=== PATIENT | female | born 1935 | race Caucasian/White ===

== ENCOUNTER → 2016-04-28 | Outpatient (CLI) | payer MEDICARE ==
[~2016-04-28] MED LIST: ALLO100T PO; ALLP300T PO; AML5T; AMLO10TA PO; AMLO5TAB2 PO; ASP81TEC PO; ASPI-587 PO; ATN50T; ATRV10T PO; BISO1TAB41; CALC667T4 PO; CARV25TA PO; CARV6.252 PO; CHOL100011 PO; CHOL10002 PO; CIPR-120 PO; CRV25T PO; DILT120C PO; DILT120C8; DILT180C94 PO; FA/V1TAB2 PO; FEBU40TA PO; FLUT12AE4 IH; FOSI40TA2 PO; FRS325T PO; FRSM20T; FURO20TA4 PO; HYDR-3004 PO; HYDR473S34 PO; INDM25C PO; KCL20TCR PO; LACT1CAP62 PO; LSNP20T; METR500T PO; MTF500T; MTF500T PO; NABU750T PO; NFR150C PO; OMEP20TA7 PO; POTA10CA43 PO; SIMV10TA3 PO; SULF1TAB35 PO; SULF1TAB38 PO; Sensipar PO; TORS20TA2; TRAM50TA2 PO; TRS20T PO; VENL150C PO; VENL150C53 PO; VNL75CCR; VNL75T PO; ZLP10T PO; [UNRECOGNIZED DRUG - OTHER]
--- NOTE | 2016-04-28 12:24 | Diagnostic Imaging Report ---
PROCEDURE: CT chest without contrast. TECHNIQUE: Multiple contiguous axial images were obtained through the chest without the use of intravenous contrast. INDICATION: Followup pulmonary nodules. COMPARISON: CT chest of 10/02/2015. FINDINGS: Lungs and airway: Bilateral multifocal pulmonary nodules range in size from 2-6 mm are unchanged in number and distribution. More rounded focus of nodular consolidation measuring approximately 14 mm along the posterior aspect of the left major fissure is also unchanged. No new pulmonary mass, suspicious nodule or consolidation. Pleura: No pleural effusion or pneumothorax. Heart and mediastinum: Stable exophytic nodule extending along the posterior aspect of the right thyroid lobe measuring 1.8 x 1.3 cm. No supraclavicular or axillary lymphadenopathy. No discrete intrathoracic lymphadenopathy. Stable cardiomegaly without pericardial effusion. 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 Normal-caliber abdominal aorta. No hiatus hernia. Upper abdomen: Stable small cystic lesion in the upper pole of the left kidney. Cholecystectomy. Atherosclerosis of the aorta. Musculoskeletal: No concerning osseous lesions in the thorax. IMPRESSION: 1. Multifocal bilateral small pulmonary nodules ranging in size from 2-6 mm are stable. These are likely due to the sequelae of infectious/inflammatory process (such as noncalcified granulomatous infection). Consider followup CT chest in 12 months to ensure stability. Imaging can perform sooner if deemed clinically warranted. 2. The solid nodular focus of consolidation in the left lower lobe along the posterior aspect of the major fissure is also unchanged. Dictated by: Dictated on workstation # [id number]
== END ==
LOC: RAD 09:49
PROVIDERS: ATTEND Internal Medicine
DX: R91.8 Other nonspecific abnormal finding of lung field (principal)
CPT/HCPCS: 71250

== ENCOUNTER 2016-07-16 13:01 | Outpatient (RCR) | payer MEDICARE | END 2016-07-16 13:30 | disposition home or self-care (01) | PROVIDERS: ATTEND Orthopaedic Surgery | DX: M75.101 Unspecified rotator cuff tear or rupture of right shoulder, not specified as traumatic (principal) ==

== ENCOUNTER 2016-12-27 13:49 | Outpatient (RCR) | payer MEDICARE | END 2017-03-27 | disposition home or self-care (01) | LOC: LAB 13:49 | PROVIDERS: ATTEND Internal Medicine | DX: R19.7 Diarrhea, unspecified (principal) | CPT/HCPCS: 87045; 87046; 87177; 87324; 87449; 87493 ==

== ENCOUNTER → 2017-02-18 | Outpatient (CLI) | payer MEDICARE | LOC: LAB 16:27 | PROVIDERS: ATTEND Internal Medicine | DX: R19.7 Diarrhea, unspecified (principal) ==

== ENCOUNTER 2017-05-21 08:57 | Outpatient (RCR) | payer MEDICARE | END 2017-08-16 | disposition home or self-care (01) | LOC: LAB 08:57 → EDSTATUS 05-23 12:05 | PROVIDERS: ATTEND Internal Medicine Gastroenterology | DX: R19.7 Diarrhea, unspecified (principal) | CPT/HCPCS: 87324; 87449; 87493 ==

== ENCOUNTER → 2017-06-30 | Outpatient (CLI) | payer MEDICARE ==
--- NOTE | 2017-06-30 17:19 | Diagnostic Imaging Report ---
INDICATION: Fall with right rib pain. AP and oblique views of the right ribs are obtained. There is no underlying pneumothorax or pleural fluid. No fracture or acute bony abnormality is seen. There is no overt lytic or blastic lesion. IMPRESSION: Negative right ribs. Dictated by: Dictated on workstation # [id number]
--- NOTE | 2017-06-30 18:47 | Diagnostic Imaging Report ---
INDICATION: Trauma. Study interpreted in correlation with previous chest x-rays. FINDINGS: Sternal wires are midline and intact. Thoracic vertebral body heights are maintained. Degenerative disc space narrowing with anteriorly oriented endplate osteophytes showed no obvious change from priors. No acute endplate irregularity, fracture, or listhesis. IMPRESSION: Degenerative changes. Aligned anatomically. No acute thoracic spinal abnormality is radiographically apparent. Dictated by: Dictated on workstation # [id number]
== END ==
LOC: RAD 15:43
PROVIDERS: ATTEND Internal Medicine
DX: R07.81 Pleurodynia (principal); M47.814 Spondylosis without myelopathy or radiculopathy, thoracic region; W19.XXXA Unspecified fall, initial encounter
CPT/HCPCS: 71100; 72072

== ENCOUNTER 2017-08-02 14:59 | Emergency (ER) | payer MEDICARE ==
[~2017-08-02] VITALS: Ht 165.1 cm; Wt 81.6 kg
--- OUTSIDE RECORDS SUMMARY | 2017-08-02 15:07 | XMS REPORT | Referral Summary ---
Author Author [facility] Organization [facility] Address Unknown Phone Unavailable Care Team Providers Care Hospital Laboratory Technician Name Role Phone Aaron Martel PCP PROVIDER, MAKAYLA PCP Unavailable Encounter VC Date(s): 06/03/17 - 06/07/17 [facility] [address] [place] [address] [phone] Discharge Disposition: 01-Home or Self Care Attending Physician: Tawny Varela MD Admitting Physician: Toño Marie MD Vital Signs Most recent to 1 oldest [Reference Range]: Temperature Oral 36.7 degC [35.8-37.3 degC] (06/07/17 12:00 PM) Temperature Temporal 36.0 degC Artery [36.3-37.8 *LOW* degC] (06/06/17 6:12 PM) Peripheral Pulse 74 bpm Rate [60-100 bpm] (06/07/17 12:00 PM) Heart Rate Monitored 65 bpm [60-100 bpm] (06/06/17 9:55 PM) Respiratory Rate 18 br/min [14-20 br/min] (06/07/17 12:00 PM) Blood Pressure 150/71 mmHg [90-140/60-90 mmHg] *HI* (06/07/17 12:00 PM) Mean Arterial 104 mmHg Pressure, Cuff (06/06/17 6:45 PM) SpO2 90 % (06/07/17 12:00 PM) Remote Telemetry Initiated (06/06/17 9:55 PM) Problem List Condition Effective Dates Status Health Status Informant Bowel Active dysfunction(Confirme d)1 Diabetes(Confirmed) Active patient Dialysis Active patient patient(Confirmed) Fluid Active imbalance(Confirmed) 2 HTN Active patient (hypertension)(Confi rmed) 1Problem added automatically by system based on initiation of Bowel Dysfunction Plan of Care 2Problem added automatically by system based on initiation of Fluid Volume Imbalance Plan of Care Allergies, Adverse Reactions, Alerts No Known Allergies Medications allopurinol 100 mg oral tablet 100 mg 1 tabs, Oral, Daily, # 30 tabs, 0 Refill(s) Start Date: 06/03/17 Status: Ordered amLODIPine 10 mg oral tablet 10 mg 1 tabs, Oral, Daily, 0 Refill(s) Start Date: 06/03/17 Status: Ordered aspirin 81 mg oral delayed release tablet 81 mg 1 tabs, Oral, Daily, # 30 tabs, 0 Refill(s) Start Date: 06/07/17 Status: Ordered calcium acetate 667 mg oral capsule 1,334 mg 2 caps, Oral, TIDPC, # 90 caps, 0 Refill(s) Start Date: 06/03/17 Status: Ordered carvedilol 25 mg oral tablet 12.5 mg 0.5 tabs, Oral, BID, 0 Refill(s) Start Date: 06/03/17 Status: Ordered Dialyvite 800 1 tabs, Oral, Daily, 0 Refill(s) Start Date: 06/03/17 Status: Ordered furosemide 40 mg, Oral, Daily, 0 Refill(s) Start Date: 06/03/17 Status: Ordered Lipitor 10 mg oral tablet 10 mg 1 tabs, Oral, Daily, # 30 tabs, 0 Refill(s) Start Date: 06/07/17 Status: Ordered losartan 100 mg oral tablet 100 mg 1 tabs, Oral, Daily, # 30 tabs, 0 Refill(s) Start Date: 06/03/17 Status: Ordered omeprazole 40 mg oral delayed release capsule 40 mg 1 caps, Oral, Daily, 0 Refill(s) Start Date: 06/03/17 Status: Ordered rOPINIRole 0.5 mg oral tablet 0.5 mg 1 tabs, Oral, Bedtime (once a day), 0 Refill(s) Start Date: 06/03/17 Status: Ordered venlafaxine 150 mg oral capsule, extended release 150 mg 1 caps, Oral, Daily, 0 Refill(s) Start Date: 06/03/17 Status: Ordered Results Hematology Most recent to 1 oldest [Reference Range]: WBC [4.8-10.8 7.1 10*3/uL 10*3/uL] (06/07/17 4:58 AM) RBC [4.00-5.20] 2.57 *LOW* (06/07/17 4:58 AM) Hgb [12.0-16.0 8.5 gm/dL gm/dL] *LOW* (06/07/17 4:58 AM) Hct [37.0-47.0 %] 26.0 % *LOW* (06/07/17 4:58 AM) MCV [82.0-99.0 fL] 101.2 fL *HI* (06/07/17 4:58 AM) MCH [27.0-32.0 pg] 33.1 pg *HI* (06/07/17 4:58 AM) MCHC [32.0-36.0 32.7 gm/dL gm/dL] (06/07/17 4:58 AM) RDW [11.5-14.5 %] 13.1 % (06/07/17 4:58 AM) Platelet [150-400 210 10*3/uL 10*3/uL] (06/07/17 4:58 AM) MPV [9.4-12.4 fL] 10.6 fL (06/07/17 4:58 AM) Immature 0.5 % Granulocytes (06/05/17 6:53 AM) [0.0-1.0 %] Neutrophils [51-75 69 % %] (06/05/17 6:53 AM) Lymphocytes [20-46 20 % %] (06/05/17 6:53 AM) Monocytes [4-11 %] 7 % (06/05/17 6:53 AM) Eosinophils [0-4 %] 3 % (06/05/17 6:53 AM) Basophils [0-2 %] 0 % (06/05/17 6:53 AM) Neutro Absolute 3.82 [1.90-7.00] (06/05/17 6:53 AM) Lymph Absolute 1.10 [0.80-3.30] (06/05/17 6:53 AM) [place] Absolute 0.40 [0.30-1.00] (06/05/17 6:53 AM) Eos Absolute 0.17 [0.00-0.50] (06/05/17 6:53 AM) Baso Absolute 0.01 [0.00-0.20] (06/05/17 6:53 AM) Nucleated RBC 0.0 /100 WBC Automated [0 /100 (06/05/17 6:53 AM) WBC] Chemistry Most recent to 1 oldest [Reference Range]: Sodium Lvl [136-144 137 mEq/L mEq/L] (06/07/17 4:58 AM) Potassium Lvl 3.6 mEq/L [3.6-5.1 mEq/L] (06/07/17 4:58 AM) Chloride [99-109 97 mEq/L mEq/L] *LOW* (06/07/17 4:58 AM) CO2 [22-32 mEq/L] 28 mEq/L (06/07/17 4:58 AM) AGAP [3-20 mEq/L] 12 mEq/L (06/07/17 4:58 AM) BUN [4-20 mg/dL] 51 mg/dL *HI* (06/07/17 4:58 AM) Glucose Lvl [70-100 100 mg/dL mg/dL] (06/07/17 4:58 AM) Creatinine Lvl 7.91 mg/dL [0.44-1.03 mg/dL] *HI* (06/07/17 4:58 AM) eGFR [>60 mL/min] 5 mL/min 1 *ABN* (06/07/17 4:58 AM) Calcium Lvl 9.1 mg/dL [8.6-10.0 mg/dL] (06/07/17 4:58 AM) Albumin Lvl [3.5-4.8 2.7 gm/dL gm/dL] *LOW* (06/06/17 5:57 AM) Total Protein 5.4 gm/dL [6.1-7.9 gm/dL] *LOW* (06/06/17 5:57 AM) Globulin [1.9-4.3 2.7 gm/dL gm/dL] (06/06/17 5:57 AM) ALT [14-54 U/L] 265 U/L *HI* (06/06/17 5:57 AM) AST [15-41 U/L] 54 U/L *HI* (06/06/17 5:57 AM) Alk Phos [26-104 185 U/L U/L] *HI* (06/06/17 5:57 AM) Bili Total [0.2-1.2 0.3 mg/dL 2 mg/dL] (06/06/17 5:57 AM) Iron [50-170 mcg/dL] 105 mcg/dL (06/05/17 10:23 AM) TIBC [286-569 305 mcg/dL mcg/dL] (06/05/17 10:23 AM) Iron Sat [11-46 %] 34 % (06/05/17 10:23 AM) Transferrin [192-382 205 mg/dL mg/dL] (06/05/17 10:23 AM) Ferritin Lvl [11-307 3647 ng/mL ng/mL] *HI* (06/05/17 10:23 AM) Magnesium Lvl 1.9 mg/dL [1.8-2.5 mg/dL] (06/07/17 4:58 AM) Phosphorus [2.4-4.7 6.5 mg/dL 3 mg/dL] *HI* (06/07/17 4:58 AM) Troponin [<0.06 0.06 ng/mL 4 ng/mL] *CRIT* (06/04/17 4:15 AM) Blood Glucose, 123 mg/dL Capillary [70-100 *HI* mg/dL] (06/03/17 8:33 PM) Chol [0-199 mg/dL] 153 mg/dL (06/03/17 4:54 PM) Trig [0-149 mg/dL] 182 mg/dL *HI* (06/03/17 4:54 PM) HDL [40-84 mg/dL] 50 mg/dL (06/03/17 4:54 PM) LDL [0-130 mg/dL] 67 mg/dL (06/03/17 4:54 PM) VLDL Cholesterol 36 mg/dL [0-28 mg/dL] *HI* (06/03/17 4:54 PM) Cardiac Risk 3.1 [0.0-5.0] (06/03/17 4:54 PM) Hep A IgM Negative (06/05/17 10:23 AM) Hep Bs Ag Negative (06/05/17 10:23 AM) Hep C Ab Negative (06/05/17 10:23 AM) Hep B Core IgM Negative (06/05/17 10:23 AM) Hgb A1c [4.1-5.6 %] 5.5 % (06/05/17 6:53 AM) eAvg Glucose 111.2 mg/dL (06/05/17 6:53 AM) 1Result Comment: Multiply eGFR results by 1.21 for race. 2Result Comment: Naproxen, specifically the metabolite O-desmethylnaproxen, may cause spurious elevation in Total Bilirubin levels. 3Result Comment: High dosages of liposomal Amphotericin B (AmBisome) therapy or other drug preparations that use a liposomal envelope to facilitate drug delivery may cause falsely elevated results for phosphorus. 4Result Comment: Critical value called, and read-back verified. Called to Elizabeth Lao RN ([id number]) 06/04/2017 05:10 Immunizations No data available for this section Procedures Procedure Date Related Diagnosis Body Site Status Colonoscopy Polypectomy1 06/06/17 Completed Esophagogastroduodenoscopy Biopsy2 06/06/17 Completed Procedure with Anesthesia3 06/06/17 Completed 1auto-populated from documented surgical case 2auto-populated from documented surgical case 3auto-populated from documented surgical case Social History Social History Type Response Smoking Status Never (less than 100 in lifetime) entered on: 06/03/17 Assessment and Plan No data available for this section
[2017-08-02] MEDS ORDERED: TETANUS,DIPTH,PERTUSS P/F (BOOSTRIX) 0.5 ML VIAL IM ONE (15:15)
--- NOTE | 2017-08-02 15:48 | Diagnostic Imaging Report ---
INDICATION: Chest injury from a fall. Portable chest at 4:01 PM FINDINGS: There are postop changes from CABG surgery. Heart size and pulmonary vascularity are normal. Lungs are clear. There are no effusions or pneumothoraces. IMPRESSION: No acute abnormalities in the chest. Dictated by: Dictated on workstation # [id number]
--- NOTE | 2017-08-02 15:49 | Diagnostic Imaging Report ---
PROCEDURE: CT head and CT cervical spine without contrast. TECHNIQUE: Multiple contiguous axial images were obtained through the brain and cervical spine without the use of intravenous contrast. Sagittal and coronal reformations through the cervical spine were then performed. INDICATION: Head trauma, forehead hematoma/laceration. CT HEAD: There is large right frontal scalp hematoma that measures 6 cm in diameter and 15 mm in thickness. The ventricles are normal in size, shape and position. There are no masses or hemorrhages. There are no extra-axial fluid collections. There is a lacunar infarct in left basal ganglia of indeterminate age. This measures 11 mm in diameter. IMPRESSION: Nonhemorrhagic lacunar infarct, left basal ganglia of indeterminate age. Large right frontal scalp hematoma. There are no skull fractures seen. CT CERVICAL SPINE: The odontoid is intact. Atlantoaxial relationship is normal. Vertebral body height and alignment appear normal. There is narrowing of the C1-2 joint space. There is disc space narrowing at C5-6. The posterior elements are intact. There are degenerative changes of the facets from C2-C5 bilaterally. IMPRESSION: Degenerative facet changes and degenerative disc changes at C5-6. No acute abnormalities are seen. Dictated by: Dictated on workstation # [id number]
--- NOTE | 2017-08-02 15:50 | Diagnostic Imaging Report ---
Indication: Injury from a fall. FINDINGS: AP view pelvis shows no fracture or dislocation. IMPRESSION: Negative pelvis. Dictated by: Dictated on workstation # [id number]
[2017-08-02 16:00] LABS: BASOPHILS % (AUTO) 0 % (0-10); EOSINOPHILS # (AUTO) 0.2 10^3/uL (0.0-0.3); EOSINOPHILS % (AUTO) 2 % (0-10); HEMATOCRIT 31 % (35-52); LYMPHOCYTES # (AUTO) 0.8 X 10^3 (1.0-4.0); LYMPHOCYTES % (AUTO) 11 % (12-44); MEAN CORPUSCULAR HEMOGLOBIN 32 PG (25-34); MEAN CORPUSCULAR HGB CONC 32 G/DL (32-36); MEAN CORPUSCULAR VOLUME 100 FL (80-99); MEAN PLATELET VOLUME 10.3 FL (7.4-10.4); MONOCYTES # (AUTO) 0.6 X 10^3 (0.0-1.0); MONOCYTES % (AUTO) 8 % (0-12); NEUTROPHILS # (AUTO) 5.8 X 10^3 (1.8-7.8); NEUTROPHILS % (AUTO) 78 % (42-75); PLATELET COUNT 217 10^3/uL (130-400); RED BLOOD COUNT 3.12 10^6/uL (4.35-5.85); RED CELL DISTRIBUTION WIDTH 12.7 % (10.0-14.5); WHITE BLOOD COUNT 7.5 10^3/uL (4.3-11.0)
[2017-08-02 16:18] LABS: ALBUMIN 3.3 GM/DL (3.2-4.5); BILIRUBIN,TOTAL 0.5 MG/DL (0.1-1.0); CALCIUM 9.6 MG/DL (8.5-10.1); CREATININE SERUM 8.82 MG/DL (0.60-1.30); MAGNESIUM 2.3 MG/DL (1.8-2.4); POTASSIUM 4.4 MMOL/L (3.6-5.0); TOTAL PROTEIN 6.4 GM/DL (6.4-8.2)
[2017-08-02 17:15] LABS: BILIRUBIN,URINE NEGATIVE (NEGATIVE); CLARITY,URINE CLEAR; COLOR,URINE YELLOW; GLUCOSE, URINE (UA) 1+ (NEGATIVE); KETONES,URINE NEGATIVE (NEGATIVE); LEUKOCYTE ESTERASE ,URINE NEGATIVE (NEGATIVE); NITRITE,URINE NEGATIVE (NEGATIVE); PH,URINE 8 (5-9); PROTEIN,URINE 3+ (NEGATIVE); UROBILINOGEN,URINE NORMAL (NORMAL)
[2017-08-02 17:22] LABS: BACTERIA,URINE FEW /HPF; RBC,URINE RARE /HPF; WBC,URINE RARE /HPF
--- NOTE | 2017-08-02 17:39 | ED Fall/Injury ---
General Chief Complaint: Trauma-Non Activation Stated Complaint: FALL Nursing Triage Note: TO ROOM PER EMS LOST BALANCE AND FELL. HAS OLD SKIN TEAR ON R FA THAT BROKE BACK OPEN AMD HEAMTOMA ON FOREHEAD WITH SUPERFICAL LACERATION NO LOC. Source: patient Exam Limitations: no limitations History of Present Illness Date Seen by Provider: Aug 02, 2017 Time Seen by Provider: 15:00 Initial Comments This 81-year-old woman presents to the emergency room via EMS after having a fall. She lost her Sergio 7 fell forward striking her head. She reports having a few other falls recently as well. She does peritoneal dialysis at home. She has a hematoma on the right forehead and a skin tear on the right forearm. She denies loss of consciousness. She denies present symptoms of concussion. She denies any other significant injury. Allergies and Home Medications Allergies Coded Allergies: No Known Drug Allergies (Verified , 03/08/15) Home Medications Allopurinol 100 Mg Tab, 100 MG PO DAILY, (Reported) Carvedilol 25 Mg Tablet, 12.5 MG PO BID, (Reported) take 1/2 of 25mg tab Fa/Vit Bcomp&C/Zinc/Vitamin D3 1 Each Tablet, 1 TAB PO DAILY, (Reported) Furosemide 20 Mg Tablet, 20 MG PO DAILY, (Reported) Omeprazole 20 Mg Tablet.dr, 20 MG PO DAILY, (Reported) Potassium Chloride 20 Meq Tabsr, 20 MEQ PO DAILY, (Reported) Venlafaxine Hcl 150 Mg Cap.sr.24h, 150 MG PO DAILY, (Reported) Patient Home Medication List Home Medication List Reviewed: Yes Review of Systems Constitutional: see HPI, weakness Eyes: No Symptoms Reported Ears, Nose, Mouth, Throat: no symptoms reported Respiratory: no symptoms reported Cardiovascular: no symptoms reported Gastrointestinal: no symptoms reported Genitourinary: no symptoms reported Musculoskeletal: see HPI Skin: see HPI Psychiatric/Neurological: No Symptoms Reported Past Zpmgooe-Lvmveu-Dxsund Hx Past Med/Social Hx: Reviewed and Corrections made Patient Social History Alcohol Use: Denies Use Recreational Drug Use: No Smoking Status: Never a Smoker Recent Foreign Travel: No Contact w/Someone Who Travel: No Recent Infectious Disease Expo: No Recent Hopitalizations: Yes Immunizations Up To Date Tetanus Booster (TDap): Unknown Date of Pneumonia Vaccine: Dec 16, 2014 Date of Influenza Vaccine: Jan 01, 2015 Seasonal Allergies Seasonal Allergies: No Past Medical History Surgeries: Yes (APPENDECTOMY, GALL BLADDER, HYSTERECTOMY, HERNIA REMOVAL) Appendectomy, CABG, Gallbladder, Hysterectomy Respiratory: Yes Pneumonia, Sleep Apnea Currently Using CPAP: Yes Cardiac: Yes (CABG IN 2007) Coronary Artery Disease Neurological: No Reproductive Disorders: No Female Reproductive Disorders: Denies Sexually Transmitted Disease: No HIV/AIDS: No Genitourinary: Yes Renal Failure, Dialysis Gastrointestinal: Yes Gastroesophageal Reflux, Diverticulosis, Ulcer, Gall Bladder Disease Musculoskeletal: Yes Arthritis Endocrine: Yes Diabetes, Non-Insulin dep HEENT: Yes Cataract Loss of Vision: Denies Hearing Impairment: Hard of Hearing Cancer: No Psychosocial: Yes Anxiety, Depression Integumentary: No Blood Disorders: Yes (ANEMIA--PROCRIT SHOTS EVERY 2 WEEKS, NONE X 6 WEEKS DUE TO ADEQUATE LEVELS) Adverse Reaction/Blood Tranf: Yes Family Medical History Reviewed Nursing Family Hx Cancer of colon 09 BROTHER Congestive heart failure 03 FATHER ( OF CHF) Family history: Diabetes mellitus 03 MOTHER (HAD DM AND WENT INTO A COMA) Physical Exam Vital Signs Vital Signs - First Documented 08/02/17 14:59 Temp 98.0 Pulse 76 Resp 18 B/P (MAP) 23/99 (74) Pulse Ox 96 O2 Delivery Room Air Capillary Refill : Less Than 3 Seconds General Appearance: WD/WN, no apparent distress HEENT: PERRL/EOMI, TMs normal, pharynx normal, other (Large hematoma on the right forehead with surrounding abrasions.) Neck: non-tender, full range of motion, normal inspection Cardiovascular: regular rate, rhythm, no edema, no murmur Respiratory: lungs clear, normal breath sounds, no respiratory distress, no accessory muscle use Gastrointestinal: normal bowel sounds, non tender, soft Extremities: other (Skin tear on the right forearm but otherwise unremarkable) Neurologic/Psychiatric: home organizer II-XII nml as tested, alert, normal mood/affect, oriented x 3, motor weakness (Generalized with no focal deficit) Skin: normal color, warm/dry, other (Skin tears of the right forearm. Hematoma , ecchymosis, no abrasions of the right forehead) [place] Coma Score Best Eye Response: (4) Open Spontaneously Best Verbal Response: (5) Oriented Best Motor Response: (6) Obeys Commands [place] Total: 15 Progress/Results/Core Measures Results/Orders Lab Results Laboratory Tests Test 08/02/17 15:49 08/02/17 17:06 Range/Units White Blood Count 7.5 4.3-11.0 10^3/uL Red Blood Count 3.12 L 4.35-5.85 10^6/uL Hemoglobin 10.0 L 11.5-16.0 G/DL Hematocrit 31 L 35-52 % Mean Corpuscular Volume 100 H 80-99 FL Mean Corpuscular Hemoglobin 32 25-34 PG Mean Corpuscular Hemoglobin Concent 32 32-36 G/DL Red Cell Distribution Width 12.7 10.0-14.5 % Platelet Count 217 130-400 10^3/uL Mean Platelet Volume 10.3 7.4-10.4 FL Neutrophils (%) (Auto) 78 H 42-75 % Lymphocytes (%) (Auto) 11 L 12-44 % Monocytes (%) (Auto) 8 0-12 % Eosinophils (%) (Auto) 2 0-10 % Basophils (%) (Auto) 0 0-10 % Neutrophils # (Auto) 5.8 1.8-7.8 X 10^3 Lymphocytes # (Auto) 0.8 L 1.0-4.0 X 10^3 Monocytes # (Auto) 0.6 0.0-1.0 X 10^3 Eosinophils # (Auto) 0.2 0.0-0.3 10^3/uL Basophils # (Auto) 0.0 0.0-0.1 10^3/uL Sodium Level 139 135-145 MMOL/L Potassium Level 4.4 3.6-5.0 MMOL/L Chloride Level 99 98-107 MMOL/L Carbon Dioxide Level 24 21-32 MMOL/L Anion Gap 16 H 5-14 MMOL/L Blood Urea Nitrogen 42 H 7-18 MG/DL Creatinine 8.82 H 0.60-1.30 MG/DL Estimat Glomerular Filtration Rate 4 BUN/Creatinine Ratio 5 Glucose Level 111 H 70-105 MG/DL Calcium Level 9.6 8.5-10.1 MG/DL Magnesium Level 2.3 1.8-2.4 MG/DL Total Bilirubin 0.5 0.1-1.0 MG/DL Aspartate Amino Transf (AST/SGOT) 23 5-34 U/L Alanine Aminotransferase (ALT/SGPT) 21 0-55 U/L Alkaline Phosphatase 82 40-136 U/L Total Protein 6.4 6.4-8.2 GM/DL Albumin 3.3 3.2-4.5 GM/DL Urine Color YELLOW Urine Clarity CLEAR Urine pH 8 5-9 Urine Specific [place] 1.010 L 1.016-1.022 Urine Protein 3+ H NEGATIVE Urine Glucose (UA) 1+ H NEGATIVE Urine Ketones NEGATIVE NEGATIVE Urine Nitrite NEGATIVE NEGATIVE Urine Bilirubin NEGATIVE NEGATIVE Urine Urobilinogen NORMAL NORMAL MG/DL Urine Leukocyte Esterase NEGATIVE NEGATIVE Urine RBC (Auto) 2+ H NEGATIVE Urine RBC RARE /HPF Urine WBC RARE /HPF Urine Squamous Epithelial Cells 10-25 H /HPF Urine Crystals NONE /LPF Urine Bacteria FEW H /HPF Urine Casts NONE /LPF Urine Mucus NEGATIVE /LPF Urine Culture Indicated NO My Orders Orders - ERNESTO DURON MD Cbc With Automated Diff (08/02/17 15:11) Comprehensive Metabolic Panel (08/02/17 15:11) Magnesium (08/02/17 15:11) Ua Culture If Indicated (08/02/17 15:11) Ct Head/Cervical Spine Wo (08/02/17 15:11) Saline Lock/Iv-Start (08/02/17 15:11) Dipht,Pertuss(Acell),Tet Adult (Boostrix (08/02/17 15:15) Pelvis (08/02/17 15:11) Chest 1 View, Ap/Pa Only (08/02/17 15:11) Vaccine Administration Single (08/02/17 ) Medications Given in ED Vital Signs/I&O 08/02/17 08/02/17 14:59 18:00 Temp 98.0 Pulse 76 76 Resp 18 18 B/P (MAP) 23/99 (74) 158/90 Pulse Ox 96 97 O2 Delivery Room Air Room Air Blood Pressure Mean: 74 Progress Progress Note : Progress Note Tetanus booster was administered. Wounds did not require repair. There was no evidence of infection on UA or chest x-ray. No serious injuries were identified by imaging. Patient was dismissed with family and advised to use precautions by using a walker. She was advised to discuss physical therapy with her primary care provider. Diagnostic Imaging Diagonstic Imaging: Xray Plain Films/CT/US/NM/MRI: chest Comments Chest x-ray viewed by me and report reviewed. See report below: NAME: AUSTIN OKEEFE [facility] REC#: [id number] PT STATUS: REG ER : 1935 PHYSICIAN: ERNESTO DURON MD ADMIT DATE: 08/02/17/ER Signed Date of Exam: 08/02/17 CHEST 1 VIEW, AP/PA ONLY INDICATION: Chest injury from a fall. Portable chest at 4:01 PM FINDINGS: There are postop changes from CABG surgery. Heart size and pulmonary vascularity are normal. Lungs are clear. There are no effusions or pneumothoraces. IMPRESSION: No acute abnormalities in the chest. Dictated by: Dictated on workstation # [id number] Dict: 08/02/17 1546 Trans: 08/02/17 1610 Interpreted by: SARA TA MD Electronically signed by: SARA TA MD 08/02/17 1610 Diagonstic Imaging: CT Plain Films/CT/US/NM/MRI: c-spine, head Comments CT head and cervical spine viewed by me and report reviewed. See report below: NAME: AUSTIN OKEEFE [facility] REC#: [id number] PT STATUS: REG ER : 1935 PHYSICIAN: ERNESTO DURON MD ADMIT DATE: 08/02/17/ER Signed Date of Exam: 08/02/17 CT HEAD/CERVICAL SPINE WO PROCEDURE: CT head and CT cervical spine without contrast. TECHNIQUE: Multiple contiguous axial images were obtained through the brain and cervical spine without the use of intravenous contrast. Sagittal and coronal reformations through the cervical spine were then performed. INDICATION: Head trauma, forehead hematoma/laceration. CT HEAD: There is large right frontal scalp hematoma that measures 6 cm in diameter and 15 mm in thickness. The ventricles are normal in size, shape and position. There are no masses or hemorrhages. There are no extra-axial fluid collections. There is a lacunar infarct in left basal ganglia of indeterminate age. This measures 11 mm in diameter. IMPRESSION: Nonhemorrhagic lacunar infarct, left basal ganglia of indeterminate age. Large right frontal scalp hematoma. There are no skull fractures seen. CT CERVICAL SPINE: The odontoid is intact. Atlantoaxial relationship is normal. Vertebral body height and alignment appear normal. There is narrowing of the C1-2 joint space. There is disc space narrowing at C5-6. The posterior elements are intact. There are degenerative changes of the facets from C2-C5 bilaterally. IMPRESSION: Degenerative facet changes and degenerative disc changes at C5-6. No acute abnormalities are seen. Dictated by: Dictated on workstation # [id number] Dict: 08/02/17 1542 Trans: 08/02/17 1610 Interpreted by: SARA TA MD Electronically signed by: SARA TA MD 08/02/17 161 Diagonstic Imaging: Xray Plain Films/CT/US/NM/MRI: pelvis Comments Pelvis x-ray viewed by me and report reviewed. See report below: NAME: AUSTIN OKEEFE [facility] REC#: [id number] PT STATUS: REG ER : 1935 PHYSICIAN: ERNESTO DURON MD ADMIT DATE: 08/02/17/ER Signed Date of Exam: 08/02/17 PELVIS Indication: Injury from a fall. FINDINGS: AP view pelvis shows no fracture or dislocation. IMPRESSION: Negative pelvis. Dictated by: Dictated on workstation # [id number] Dict: 08/02/17 1545 Trans: 08/02/17 1610 Interpreted by: SARA TA MD Electronically signed by: SARA AT MD 08/02/17 161 Departure Impression Primary Impression: Traumatic hematoma of forehead Qualified Codes: S00.83XA - Contusion of other part of head, initial encounter Additional Impressions: Fall on same level Qualified Codes: W18.30XA - Fall on same level, unspecified, initial encounter Skin tear Forehead abrasion Qualified Codes: S00.81XA - Abrasion of other part of head, initial encounter Frequent falls Disposition: 01 HOME, SELF-CARE Condition: Improved Departure-Patient Inst. Decision time for Depature: 17:41 Referrals: JAGDISH MARTEL DO (PCP/Family) Primary Care Physician Patient Instructions: HEMATOMA Add. Discharge Instructions: Keep your wounds clean and dry except for normal bathing. You may apply antibiotic ointment once or twice daily if you choose. Antibiotic ointment may be used to prevent wounds from sticking to dressings as well. Please use your walker when you are ambulating. Follow-up with Dr. Martel as soon as possible. Discuss the potential for physical therapy or other strength training at your follow-up appointment. You may apply ice to sore areas and to the hematoma on your head in 20 minute intervals. Use Tylenol (acetaminophen) up to 1000 mg every 6 hours as needed for pain. Return to care if symptoms are worsening or you develop new symptoms. All discharge instructions reviewed with patient and/or family. Voiced understanding. Copy Copies To 1: JAGDISH MARTEL JOSHUA T MD Aug 02, 2017 17:39
[2017-08-02 18:00] VITALS: BP 158/90
== END 2017-08-02 18:05 | disposition home or self-care (01) ==
LOC: EDUNIT# 14:59 → ER 15:00
DX: S01.81XA Laceration without foreign body of other part of head, initial encounter (principal); G47.30 Sleep apnea, unspecified; I25.10 Atherosclerotic heart disease of native coronary artery without angina pectoris; E11.9 Type 2 diabetes mellitus without complications; F41.9 Anxiety disorder, unspecified; F32.9 Major depressive disorder, single episode, unspecified; D64.9 Anemia, unspecified; K21.9 Gastro-esophageal reflux disease without esophagitis; Z99.2 Dependence on renal dialysis; Z95.5 Presence of coronary angioplasty implant and graft; Z90.49 Acquired absence of other specified parts of digestive tract; Z90.710 Acquired absence of both cervix and uterus; Z87.19 Personal history of other diseases of the digestive system; Z23 Encounter for immunization; Z80.0 Family history of malignant neoplasm of digestive organs; W18.30XA Fall on same level, unspecified, initial encounter
CPT/HCPCS: 36415; 70450; 71045; 72125; 72170; 80053; 81000; 83735; 85025; 90471; 90715

== ENCOUNTER → 2017-08-03 | Outpatient (CLI) | payer MEDICARE ==
--- NOTE | 2017-08-03 12:42 | Diagnostic Imaging Report ---
Right hand 1214 hours. INDICATION: Hand pain. 3 views were obtained. There are no prior studies available for comparison. FINDINGS: Reportedly, there is clinical concern regarding injury to the fifth digit. There is no fracture, dislocation or acute bony abnormality involving the fifth digit. The soft tissues are unremarkable. The other osseous structures are intact as well. There is moderate degenerative disease of the radiocarpal joint. IMPRESSION: There is no evidence for an acute bony abnormality. Dictated by: Dictated on workstation # [id number]
== END ==
LOC: RAD 11:44
PROVIDERS: ATTEND Internal Medicine
DX: S69.91XA Unspecified injury of right wrist, hand and finger(s), initial encounter (principal)
CPT/HCPCS: 73130

== ENCOUNTER 2017-09-12 18:40 | Emergency (ER) | payer MEDICARE ==
[~2017-09-12] VITALS: Ht 165.1 cm; Wt 81.9 kg
[~2017-09-12 18:40] MED LIST changes: -AMLO10TA2; -HYDR-757 PO; -LOSA100T28
[2017-09-12] MEDS ORDERED: AMLO10TA2 (18:54)
[2017-09-12] MEDS ORDERED: LOSA100T28 (18:54)
--- NOTE | 2017-09-12 19:12 | ED Fall/Injury ---
General Chief Complaint: Trauma-Non Activation Stated Complaint: RIB FRACTURES Nursing Triage Note: right rib fx Source: patient Exam Limitations: no limitations History of Present Illness Date Seen by Provider: Sep 12, 2017 Time Seen by Provider: 19:09 Initial Comments to ER by family with reports of right rib fractures. Patient fell at home 2 days ago on Tuesday. She's had some persistent right upper back pain since then. She did hit her head. She reports some blurred vision in the right eye, no complaints of headache. She had outpatient chest and right rib x-rays done today at about 6 PM which showed minimally displaced right posterior fourth and fifth rib fractures. X-ray audiovisual technician was concerned about these findings and was unable to contact patient's primary care provider as the office had already closed by the time the patient arrived for xrays. She brought this to my attention so I called the patient's daughter to bring her to the emergency room for further evaluation. Patient does peritoneal dialysis at home, history of CABG, diabetes and coronary artery disease. Location Injury Occurred: home Occurred: other (2 days ago) Severity: moderate Injuries/Pain Location: back Context: tripped Loss of Consciousness: unsure Associated Symptoms (Fall): No Abdominal Pain; Chest Pain (posterior right); No Headache, No Neck Pain Allergies and Home Medications Allergies Coded Allergies: No Known Drug Allergies (Verified , 03/08/15) Home Medications Allopurinol 100 Mg Tab, 100 MG PO DAILY, (Reported) Carvedilol 25 Mg Tablet, 12.5 MG PO BID, (Reported) take 1/2 of 25mg tab Hydrocodone/Acetaminophen 1 Each Tablet, 1 EACH PO Q4H PRN for PAIN-MODERATE TO SEVERE Prescribed by: BERHANE CARRILLO on 09/12/172036 Omeprazole 20 Mg Tablet.dr, 20 MG PO DAILY, (Reported) Venlafaxine Hcl 150 Mg Cap.sr.24h, 150 MG PO DAILY, (Reported) Patient Home Medication List Home Medication List Reviewed: Yes Review of Systems Constitutional: see HPI Eyes: No Symptoms Reported Ears, Nose, Mouth, Throat: no symptoms reported Respiratory: see HPI Cardiovascular: no symptoms reported Genitourinary: no symptoms reported Musculoskeletal: no symptoms reported Skin: no symptoms reported Psychiatric/Neurological: No Symptoms Reported Past Dmiyure-Qanjfk-Snsxck Hx Patient Social History Alcohol Use: Denies Use Recreational Drug Use: No Smoking Status: Never a Smoker 2nd Hand Smoke Exposure: No Recent Foreign Travel: No Contact w/Someone Who Travel: No Recent Infectious Disease Expo: No Recent Hopitalizations: Yes Immunizations Up To Date Tetanus Booster (TDap): Unknown Date of Pneumonia Vaccine: Dec 16, 2014 Date of Influenza Vaccine: Jan 01, 2015 Seasonal Allergies Seasonal Allergies: No Past Medical History Surgeries: Yes (APPENDECTOMY, GALL BLADDER, HYSTERECTOMY, HERNIA REMOVAL) Appendectomy, CABG, Gallbladder, Hysterectomy Respiratory: Yes Pneumonia, Sleep Apnea Currently Using CPAP: Yes Cardiac: Yes (CABG IN 2007) Coronary Artery Disease Neurological: No : No Reproductive Disorders: No Female 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 Sexually Transmitted Disease: No HIV/AIDS: No Genitourinary: Yes Renal Failure, Dialysis Gastrointestinal: Yes Gastroesophageal Reflux, Diverticulosis, Ulcer, Gall Bladder Disease Musculoskeletal: Yes Arthritis Endocrine: Yes Diabetes, Non-Insulin dep HEENT: Yes Cataract Loss of Vision: Denies Hearing Impairment: Hard of Hearing Cancer: No Psychosocial: Yes Anxiety, Depression Integumentary: No Blood Disorders: Yes (ANEMIA--PROCRIT SHOTS EVERY 2 WEEKS, NONE X 6 WEEKS DUE TO ADEQUATE LEVELS) Adverse Reaction/Blood Tranf: Yes Family Medical History Cancer of colon 09 BROTHER Congestive heart failure 03 FATHER ( OF CHF) Family history: Diabetes mellitus 03 MOTHER (HAD DM AND WENT INTO A COMA) Physical Exam Vital Signs Vital Signs - First Documented 09/12/17 18:45 Temp 98.2 Pulse 73 Resp 18 B/P (MAP) 182/89 (120) Pulse Ox 97 O2 Delivery Room Air Capillary Refill : Less Than 3 Seconds Height, Weight, BMI Height: 5'5.00" Weight: 180lbs. 8.0oz. 81.505939pr; 24.9 BMI Method:Estimated General Appearance: WD/WN, no apparent distress HEENT: PERRL/EOMI, normal ENT inspection Neck: non-tender, full range of motion Cardiovascular: regular rate, rhythm, no murmur Respiratory: normal breath sounds, no respiratory distress, no accessory muscle use Gastrointestinal: normal bowel sounds, non tender, soft Back: other (the right upper back is without abrasions erythema or ecchymosis. No crepitus. Lung sounds are equal bilaterally. ) Extremities: normal range of motion, non-tender Neurologic/Psychiatric: alert, normal mood/affect, oriented x 3 Skin: normal color, warm/dry [place] Coma Score Best Eye Response: (4) Open Spontaneously Best Verbal Response: (5) Oriented Best Motor Response: (6) Obeys Commands [place] Total: 15 Progress/Results/Core Measures Results/Orders Lab Results Laboratory Tests Test 09/12/17 19:13 09/12/17 19:39 Range/Units White Blood Count 9.2 4.3-11.0 10^3/uL Red Blood Count 3.54 L 4.35-5.85 10^6/uL Hemoglobin 11.5 11.5-16.0 G/DL Hematocrit 35 35-52 % Mean Corpuscular Volume 99 80-99 FL Mean Corpuscular Hemoglobin 33 25-34 PG Mean Corpuscular Hemoglobin Concent 33 32-36 G/DL Red Cell Distribution Width 13.6 10.0-14.5 % Platelet Count 255 130-400 10^3/uL Mean Platelet Volume 10.0 7.4-10.4 FL Neutrophils (%) (Auto) 82 H 42-75 % Lymphocytes (%) (Auto) 8 L 12-44 % Monocytes (%) (Auto) 9 0-12 % Eosinophils (%) (Auto) 1 0-10 % Basophils (%) (Auto) 0 0-10 % Neutrophils # (Auto) 7.6 1.8-7.8 X 10^3 Lymphocytes # (Auto) 0.7 L 1.0-4.0 X 10^3 Monocytes # (Auto) 0.8 0.0-1.0 X 10^3 Eosinophils # (Auto) 0.1 0.0-0.3 10^3/uL Basophils # (Auto) 0.0 0.0-0.1 10^3/uL Sodium Level 142 135-145 MMOL/L Potassium Level 3.9 3.6-5.0 MMOL/L Chloride Level 98 98-107 MMOL/L Carbon Dioxide Level 28 21-32 MMOL/L Anion Gap 16 H 5-14 MMOL/L Blood Urea Nitrogen 49 H 7-18 MG/DL Creatinine 9.83 H 0.60-1.30 MG/DL Estimat Glomerular Filtration Rate 4 BUN/Creatinine Ratio 5 Glucose Level 148 H 70-105 MG/DL Calcium Level 10.0 8.5-10.1 MG/DL Total Bilirubin 0.6 0.1-1.0 MG/DL Aspartate Amino Transf (AST/SGOT) 29 5-34 U/L Alanine Aminotransferase (ALT/SGPT) 82 H 0-55 U/L Alkaline Phosphatase 120 40-136 U/L Total Protein 7.3 6.4-8.2 GM/DL Albumin 3.7 3.2-4.5 GM/DL Prothrombin Time 13.0 12.2-14.7 SEC INR Comment 1.0 0.8-1.4 Activated Partial Thromboplast Time 28 24-35 SEC My Orders Orders - BERHANE CARRILLO APRN Hydrocodone/Apap 5/325 Tablet (Lortab 5 (09/12/17 19:15) Cbc With Automated Diff (09/12/17 19:06) Comprehensive Metabolic Panel (09/12/17 19:06) Partial Thromboplastin Time (09/12/17 19:06) Protime With Inr (09/12/17 19:06) Ct Head/Cervical Spine Wo (09/12/17 19:06) Ct Chest Wo (09/12/17 19:06) Iv Heplock-Insert (Order) (09/12/17 19:08) Rx-Hydrocodone/Apap 5-325 Mg (Rx-Vicodin (09/12/17 20:45) Medications Given in ED Current Medications Medications Dose Ordered Sig/Soila Route Start Time Stop Time Status Last Admin Dose Admin Acetaminophen/ Hydrocodone Bitart 1 tab ONCE ONCE PO 18 19:15 09/12/17 19:16 DC 09/12/17 19:18 1 TAB Vital Signs/I&O 09/12/17 18:45 Temp 98.2 Pulse 73 Resp 18 B/P (MAP) 182/89 (120) Pulse Ox 97 O2 Delivery Room Air Blood Pressure Mean: 120 Departure Communication (Admissions) Family Conversation i discussed with the patient and the family the rib fractures and the need for incentive spirometry. They have this at home already. I'll prescribe them some pain medication for pain control. Because the patient is on hemodialysis she cannot go to a halfway as none are capable of dealing with this. Patient's daughters are both at the bedside with her and her very pleasant reasonable individuals. Patient currently has [facility] care at home but they feel that she needs even more care than [facility] is providing. The going to speak with Dr. Martel tomorrow. I'll also fax my note to Dr. Martel's office.They state that the patient has been scheduled 3 times for carotid artery ultrasounds. Concerned about this possibly having caused the stroke. Discussed within the distribution of this stroke would not be in the carotid artery territory. Patient states that she would not want an endarterectomy done even if there were a treatable occlusion noted. I discussed with the patient and family that obtaining a carotid artery ultrasound would be unnecessary if they didn't want to potentially treat whatever was found on the ultrasound. patient states "I'm just tired of it all". We will discharge to home NAME: ASUTIN OKEEFE [facility] REC#: [id number] PT STATUS: REG ER : 1935 PHYSICIAN: BERHANE CARRILLO APRN ADMIT DATE: 09/12/17/ER Draft Date of Exam:09/12/17 CT CHEST WO PROCEDURE: CT chest without contrast. TECHNIQUE: Multiple contiguous axial images were obtained through the chest without the use of intravenous contrast. INDICATION: Trauma with rib fractures. FINDINGS: There are fractures of the posterior right fourth rib near the costovertebral margin and along the slightly more peripheral area beneath the scapula, which are nondisplaced. There is a mildly displaced fracture beneath the scapula of the right fifth rib. No other rib fractures are demonstrated. The scapulae appear intact. The coracoid processes are intact. The clavicles are intact. The lungs are well aerated. There are multiple scattered soft tissue nodules noted throughout both lungs both in the upper and lower lobes as well as the middle lobe and lingula. These measure approximately 7 mm and smaller and are too numerable to count. There is an additional focal larger density in the left lung base abutting the cardiac shadow measuring 1.5 cm. There is calcification of the aorta and coronary arteries. Median sternotomy changes are noted. There are no pleural effusions or pericardial effusions. There is noted ascites which is extending into a hiatal hernia. The adrenal glands are not enlarged. No blastic or lytic bony changes demonstrated. Reconstructed images of the thoracic spine show good alignment with no evidence of compression fractures. IMPRESSION: 1. Fractures of posterior right fourth and fifth ribs as described above with mild displacement of the fifth rib fracture. 2. No evidence of pneumothorax or pleural effusions. 3. There are innumerable pulmonary nodules as described on previous exam of 04/28/2016. The density along the left lung base measures 1.5 cm and does not appear significantly different. This likely is due to volume averaging. 4. There has been increase in volume of ascites in the abdomen since the previous exam. Dictated on workstation # [id number] Dict: 09/12/17 194 Trans: 09/12/172011 [id number] Interpreted by: JERRICA CARDOSO MD Electronically signed by: Impression Primary Impression: Subacute infarct left occipital lobe Additional Impressions: Fracture, rib End-stage renal disease on peritoneal dialysis Disposition: HOME, SELF-CARE Condition: Stable Departure-Patient Inst. Decision time for Depature: 20:20 Referrals: JAGDISH MARTEL DO (PCP/Family) Primary Care Physician Patient Instructions: RIB FRACTURE Add. Discharge Instructions: 1. If you do not already take an aspirin, you should take a daily baby aspirin. 2. Pain medication as directed 3.All discharge instructions reviewed with patient and/or family. Voiced understanding. Scripts Hydrocodone/Acetaminophen ([place] 5-325 Tablet) 1 Each Tablet 1 EACH PO Q4H PRN for PAIN-MODERATE TO SEVERE, #20 TAB Prov: BERHANE CARRILLO APRN 09/12/17 Copy Copies To 1: JAGDISH MARTEL PETER J APRN Sep 12, 2017 19:12
[2017-09-12] MEDS ORDERED: HYDROcodone/APAP 5 MG/325 MG (LORTAB) TAB PO ONE (19:15)
[2017-09-12 19:27] LABS: BASOPHILS % (AUTO) 0 % (0-10); EOSINOPHILS # (AUTO) 0.1 10^3/uL (0.0-0.3); EOSINOPHILS % (AUTO) 1 % (0-10); HEMATOCRIT 35 % (35-52); HEMOGLOBIN 11.5 G/DL (11.5-16.0); LYMPHOCYTES # (AUTO) 0.7 X 10^3 (1.0-4.0); LYMPHOCYTES % (AUTO) 8 % (12-44); MEAN CORPUSCULAR HEMOGLOBIN 33 PG (25-34); MEAN CORPUSCULAR HGB CONC 33 G/DL (32-36); MEAN CORPUSCULAR VOLUME 99 FL (80-99); MONOCYTES # (AUTO) 0.8 X 10^3 (0.0-1.0); MONOCYTES % (AUTO) 9 % (0-12); NEUTROPHILS # (AUTO) 7.6 X 10^3 (1.8-7.8); NEUTROPHILS % (AUTO) 82 % (42-75); PLATELET COUNT 255 10^3/uL (130-400); RED BLOOD COUNT 3.54 10^6/uL (4.35-5.85); RED CELL DISTRIBUTION WIDTH 13.6 % (10.0-14.5); WHITE BLOOD COUNT 9.2 10^3/uL (4.3-11.0)
[2017-09-12 19:49] LABS: ALBUMIN 3.7 GM/DL (3.2-4.5); BILIRUBIN,TOTAL 0.6 MG/DL (0.1-1.0); CREATININE SERUM 9.83 MG/DL (0.60-1.30); POTASSIUM 3.9 MMOL/L (3.6-5.0); TOTAL PROTEIN 7.3 GM/DL (6.4-8.2)
--- NOTE | 2017-09-12 20:08 | Diagnostic Imaging Report ---
CLINICAL INDICATION: Patient fell two days ago striking left side of head. EXAM: Head CT without IV contrast. Axial CT scan of the cervical spine with sagittal and coronal reformations. COMPARISON: CT scan of the head and cervical spine without contrast dated 08/02/2017. FINDINGS: HEAD CT: There is interval development of a small area of low-attenuation involving the left occipital lobe, which extends through the cortex concerning for acute/subacute cerebral infarct. Stable small area of encephalomalacia involving the posterior left frontal lobe region consistent with chronic cerebral infarct. Stable likely chronic lacunar infarct involving the left jeronimo radiata frontal lobe region. There are chronic ischemic changes with low density involving the left cerebellum. There are other areas of patchy low density involving both cerebral hemispheres, likely representing chronic small vessel ischemic disease. There is diffuse brain parenchymal volume loss noted. There is no evidence of intracranial hemorrhage, brain herniation, or midline shift. There is no hydrocephalus. Basal cisterns are unremarkable. There is a small area of extracranial soft tissue swelling in the right frontal region. Orbits and globes are intact. There is no skull fracture. Paranasal sinuses and temporal bone structures show no significant abnormality. CERVICAL SPINE: There is no acute cervical spine fracture or dislocation. There is cervical spine degenerative disease with vertebral body spurs and facet arthropathy. There is itgyzynh-pb-xcqvvo bilateral neural foramen narrowing involving the mid cervical spine. Visualized upper lung jett are clear. The neck soft tissue structures show medialization of the bilateral cervical ICAs. Otherwise, the soft tissue structures are unremarkable. IMPRESSION: 1: There is a small acute/subacute cerebral infarct involving the left occipital lobe. There is no evidence of intracranial hemorrhage or brain herniation. 2: Otherwise, stable chronic small vessel ischemic changes of the brain parenchyma. 3: There is cervical spine degenerative disease with no acute fracture or dislocation. 4: There is a small area of extracranial soft tissue swelling in the right frontal region with no skull fracture. Dictated by: Dictated on workstation # [id number]
--- NOTE | 2017-09-12 20:12 | Diagnostic Imaging Report ---
PROCEDURE: CT chest without contrast. TECHNIQUE: Multiple contiguous axial images were obtained through the chest without the use of intravenous contrast. INDICATION: Trauma with rib fractures. FINDINGS: There are fractures of the posterior right fourth rib near the costovertebral margin and along the slightly more peripheral area beneath the scapula, which are nondisplaced. There is a mildly displaced fracture beneath the scapula of the right fifth rib. No other rib fractures are demonstrated. The scapulae appear intact. The coracoid processes are intact. The clavicles are intact. The lungs are well aerated. There are multiple scattered soft tissue nodules noted throughout both lungs both in the upper and lower lobes as well as the middle lobe and lingula. These measure approximately 7 mm and smaller and are too numerable to count. There is an additional focal larger density in the left lung base abutting the cardiac shadow measuring 1.5 cm. There is calcification of the aorta and coronary arteries. Median sternotomy changes are noted. There are no pleural effusions or pericardial effusions. There is noted ascites which is extending into a hiatal hernia. The adrenal glands are not enlarged. No blastic or lytic bony changes demonstrated. Reconstructed images of the thoracic spine show good alignment with no evidence of compression fractures. IMPRESSION: 1. Fractures of posterior right fourth and fifth ribs as described above with mild displacement of the fifth rib fracture. 2. No evidence of pneumothorax or pleural effusions. 3. There are innumerable pulmonary nodules as described on previous exam of 04/28/2016. The density along the left lung base measures 1.5 cm and does not appear significantly different. This likely is due to volume averaging. 4. There has been increase in volume of ascites in the abdomen since the previous exam. Dictated by: Dictated on workstation # [id number]
[2017-09-12] MEDS ORDERED: HYDR-757 PO (20:37)
[2017-09-12] MEDS ORDERED: RX-HYDROCODONE/APAP 5/325 MG #4 TAB PK PO PRN (20:45)
[2017-09-12 20:49] VITALS: BP 180/89
== END 2017-09-12 20:43 | disposition home or self-care (01) ==
LOC: EDUNIT# 18:40 → ER 18:41
DX: S22.41XA Multiple fractures of ribs, right side, initial encounter for closed fracture (principal); I63.8 Other cerebral infarction; E11.22 Type 2 diabetes mellitus with diabetic chronic kidney disease; N18.6 End stage renal disease; I25.10 Atherosclerotic heart disease of native coronary artery without angina pectoris; K21.9 Gastro-esophageal reflux disease without esophagitis; F41.9 Anxiety disorder, unspecified; F32.9 Major depressive disorder, single episode, unspecified; Z87.19 Personal history of other diseases of the digestive system; Z99.2 Dependence on renal dialysis; Z90.49 Acquired absence of other specified parts of digestive tract; Z95.1 Presence of aortocoronary bypass graft; Z90.710 Acquired absence of both cervix and uterus; W22.8XXA Striking against or struck by other objects, initial encounter; Y92.009 Unspecified place in unspecified non-institutional (private) residence as the place of occurrence of the external cause
CPT/HCPCS: 36415; 70450; 71250; 72125; 80053; 85025; 85610; 85730

== ENCOUNTER → 2017-09-12 | Outpatient (CLI) | payer MEDICARE ==
[~2017-09-12] MED LIST changes: +AMLO10TA2; -FOSI40TA2 PO; +FOSI40TA4 PO; +HYDR-757 PO; +LOSA100T28
--- NOTE | 2017-09-12 18:25 | Diagnostic Imaging Report ---
INDICATION: Fall. Complaining of right anterior rib pain. FINDINGS: Portable chest shows the lungs to be well-aerated. No pneumothorax or pleural effusion. No atelectasis. Heart is mildly enlarged. Median sternotomy changes are present. There is no pulmonary edema. Clavicles appear intact. There are fractures noted involving the posterior fourth and fifth rib which show mild displacement. IMPRESSION: 1. Minimally displaced fractures of the posterior lateral right fourth and fifth ribs. 2. No evidence of pneumothorax or pleural effusions with lungs clear. Dictated by: Dictated on workstation # [id number]
--- NOTE | 2017-09-12 18:27 | Diagnostic Imaging Report ---
INDICATION: Fall with rib pain on the right. FINDINGS: There are minimally displaced fractures of posterolateral right fourth and fifth ribs. No other rib fractures are demonstrated. No pneumothorax or pleural effusion. IMPRESSION: Fracture of the posterior lateral right fourth and fifth ribs. Dictated by: Dictated on workstation # [id number]
== END ==
LOC: RAD 17:43
PROVIDERS: ATTEND Internal Medicine
DX: S22.41XA Multiple fractures of ribs, right side, initial encounter for closed fracture (principal); W19.XXXA Unspecified fall, initial encounter
CPT/HCPCS: 71045; 71100

== ENCOUNTER 2017-09-13 15:58 | Emergency (ER) | payer MEDICARE ==
[~2017-09-13] VITALS: Ht 165.1 cm; Wt 81.9 kg
[~2017-09-13 15:58] MED LIST changes: +AMLO10TA2; +HYDR-757 PO; +LOSA100T28
--- OUTSIDE RECORDS SUMMARY | 2017-09-13 16:08 | XMS REPORT | Continuity of Care Document ---
Author Author [facility] Organization [facility] Address Unknown Phone Unavailable Allergies Active Description Code Type Severity Reaction Onset Reported/Identified Relationship to Patient Clinical Status Yes No Allergy Information Available Drug Allergy Unknown N/A 05/28/2013 Yes No Known Allergies No Known Allergies Drug Allergy Unknown N/A 2013 Yes No Known Drug Allergies [id number] Drug Allergy Unknown N/A 03/08/2015 Yes No Known Drug Allergy Drug Allergy Unknown N/A 08/12/2015 Yes No Known Drug Category Allergy Drug Allergy Unknown N/A 08/12/2015 Yes No Known Environment Allergy Environmental Allergy Unknown N/A 08/12/2015 Yes No Known Food Allergy Food Allergy Unknown N/A 08/12/2015 Yes No Known Allergies NKMA N/A N/A 06/03/2017 Medications Medication Packaging Start Date Stop Date Route Dosage Sig Lasix 20 mg tablet Tablet 201305/20/2014 20 mg 1 (one) by Oral route daily for 90 days lactulose 10 gram/15 mL oral solution Unspecified 09/19/2013 05/18/2017 10 gram/15 mL 1 (one) Solution by Oral route daily as needed DIALYVITE 800 0.8 mg tablet 08/11 0.8 mg take 1 (one) Tablet by Oral route daily allopurinol 100 mg tablet 2015 100 mg take 1 ( one) Tablet by Oral route daily Klor-Con M20 mEq tablet,extended release 08/12/2015 20 mEq 1 (one) by Oral route daily venlafaxine ER 150 mg capsule,extended release 24 hr 08/12/2015 150 mg take 1 (one) by Oral route daily carvedilol 25 mg tablet Tablet 25 mg take 1 (one) Tablet by Oral route two times per day omeprazole 40 mg capsule,delayed release 08/12/2015 40 mg take 1 (one) by Oral route daily furosemide 20 mg tablet 2015 20 mg take 1 ( one) Tablet by Oral route daily calcium acetate 667 mg capsule 667 mg take 1 (one) Capsule by Oral route daily ipratropium-albuterol 0.5 mg-3 mg(2.5 mg base)/3 mL nebulization soln Vial 12/19/2015 07/16/2016 0.5 mg-3 mg(2.5 mg base)/3 mL 1 (one ) by Inhalation route three times per day for 30 days losartan 25 mg tablet 12/19/2015 25 mg take 1 (one) Tablet by Oral route daily ondansetron(Zofran) 2 mL 201706/03/2017 IV Push 4 mg 4 mg=2 mL, IV Push, q30min, PRN: Nausea or Vomiting aspirin(aspirin) 4 tabs 06/03/2017 06/03/2017 Oral 324 mg 324 mg=4 tabs, Oral, Once, PRN: Other (See Comment) heparin(heparin) 1 mL 06/03/2017 06/07/2017 SubCutaneous 5,000 units 5,000 units=1 mL, SubCutaneous, q8hr (scheduled) glucagon(glucagon) 1 mL 06/03/2017 06/07/2017 IntraMuscular 1 mg 1 mg=1 mL, IntraMuscular, As Indicated, PRN: Hypoglycemia/Low Blood Sugar glucose(glucose) 06/03/2017 06/07/2017 Oral 15 g 15 g, Oral, q1hr, PRN: Hypoglycemia/Low Blood Sugar Dextrose 50% in Water(Dextrose 50% in Water Injection) 25 mL 06/03/2017 06/07/2017 IV Push 12.5 g 12.5 g=25 mL, IV Push, q15min, PRN: Hypoglycemia/Low Blood Sugar Dextrose 10% in Water(Dextrose 10% in Water 250 mL) 250 mL 06/03/2017 06/07/2017 IV 50 mL/hr, IV calcium acetate(calcium acetate 667 mg oral capsule) 1 caps 06/03/2017 06/07/2017 Oral 667 mg 667 mg=1 caps, Oral, BID, with snacks, 90 caps, 0 Refill(s) losartan(losartan 100 mg oral tablet) 1 tabs 06/03/2017 Oral 100 mg 100 mg=1 tabs, Oral, Daily, 30 tabs, 0 Refill(s) furosemide(furosemide) 2017 Oral 40 mg 40 mg , Oral, Daily, 0 Refill(s) multivitamin(Dialyvite 800) 1 tabs 06/03/2017 Oral 1 tabs, Oral, Daily, 0 Refill(s) allopurinol(allopurinol 100 mg oral tablet) 1 tabs 06/03/2017 Oral 100 mg 100 mg=1 tabs, Oral, Daily, 30 tabs, 0 Refill(s) venlafaxine(venlafaxine 150 mg oral capsule, extended release) 1 caps 06/03/2017 Oral 150 mg 150 mg=1 caps, Oral, Daily, 0 Refill(s) rOPINIRole(rOPINIRole 0.5 mg oral tablet) 1 tabs 06/03/2017 Oral 0.5 mg 0.5 mg=1 tabs, Oral, Bedtime (once a day), 0 Refill(s) amLODIPine(amLODIPine 10 mg oral tablet) 1 tabs 06/03/2017 Oral 10 mg 10 mg=1 tabs, Oral, Daily, 0 Refill(s) omeprazole(omeprazole 40 mg oral delayed release capsule) 1 caps 06/03/2017 Oral 40 mg 40 mg=1 caps, Oral, Daily, 0 Refill(s) carvedilol(carvedilol 25 mg oral tablet) 0.5 tabs 06/03/2017 Oral 12.5 mg 12.5 mg=0.5 tabs, Oral, BID, 0 Refill(s) allopurinol(allopurinol) 1 tabs 07/201706/07/2017 Oral 100 mg 100 mg=1 tabs, Oral, Daily rOPINIRole(rOPINIRole) 2 tabs 06/0306/07/2017 Oral 0.5 mg 0.5 mg=2 tabs, Oral, Bedtime (once a day) oxyCODONE(oxyCODONE) 1 tabs 201706/03/2017 Oral 5 mg 5 mg=1 tabs, Oral, Once, PRN: Pain Severe (7-10) polyethylene glycol electrolyte solution(polyethylene glycol 3350 with electrolytes) 4,000 mL 06/04/2017 06/05/2017 Oral 4,000 mL, Oral , Once senna(Senokot) 2 tabs 06/04/2017 06/05/2017 Oral 17.2 mg 17.2 mg=2 tabs, Oral, Once venlafaxine(venlafaxine) 1 caps 08/201706/07/2017 Oral 150 mg 150 mg=1 caps, Oral, Daily pantoprazole(Protonix) 1 tabs 06/0406/07/2017 Oral 40 mg 40 mg=1 tabs, Oral, Daily calcium acetate(calcium acetate) 2 caps 06/04/2017 06/07/2017 Oral 1,334 mg 1,334 mg=2 caps, Oral, TIDPC carvedilol(carvedilol) 1 tabs 06/0406/04/2017 Oral 12.5 mg 12.5 mg=1 tabs, Oral, BID atorvastatin(Lipitor) 1 tabs 201706/07/2017 Oral 10 mg 10 mg=1 tabs, Oral, Daily aspirin(aspirin) 1 tabs 06/04/2017 06/07/2017 Oral 81 mg 81 mg=1 tabs, Oral, Daily potassium chloride(potassium chloride 20 mEq oral powder for reconstitution) 1 packets 06/05/2017 06/05/2017 Oral 20 mEq 20 mEq=1 packets, Oral, TID ondansetron(Zofran) 2 mL 201706/05/2017 IV Push 4 mg 4 mg=2 mL, IV Push, q6hr, PRN: Nausea or Vomiting metoclopramide(Reglan) 2 mL 201706/05/2017 IV Push 10 mg 10 mg=2 mL, IV Push, q6hr, PRN: Nausea or Vomiting losartan(losartan) 2 tabs 201706/07/2017 Oral 100 mg 100 mg=2 tabs, Oral, Daily amLODIPine(amLODIPine) 1 tabs 06/0506/07/2017 Oral 10 mg 10 mg=1 tabs, Oral, Daily Sodium Chloride 0.9%(Sodium Chloride 0.9% 1,000 mL) 1,000 mL 06/06/2017 06/06/2017 IV 10 mg/hr, IV lidocaine(lidocaine 1% injectable solution) 1 mL 06/06/2017 06/06/2017 SubCutaneous 1 mL, SubCutaneous, Once, PRN: Other (See Comment) Sodium Chloride 0.9%(Sodium Chloride 0.9% 500 mL) 500 mL 06/06/2017 06/06/2017 IV 10 mL/hr, IV atorvastatin(Lipitor 10 mg oral tablet) 1 tabs 06/07/2017 Oral 10 mg 10 mg=1 tabs, Oral, Daily, 30 tabs, 0 Refill(s) aspirin(aspirin 81 mg oral delayed release tablet) 1 tabs 06/07/2017 Oral 81 mg 81 mg=1 tabs, Oral, Daily, 30 tabs, 0 Refill(s) psyllium(Metamucil) 1 packets 06/0706/07/2017 Oral 3.4 g 3.4 g=1 packets, Oral, Daily Problems Date Dx Coded Attending Type Code Diagnosis Diagnosed By 05/14/2011 Ot 250.00 DIAB NEVAEH WO COMPL, TYPE II OR UNSPEC TY 05/14/2011 Ot 530.3 ESOPHAGEAL STRICTURE 05/14/2011 Ot 553.3 DIAPHRAGMATIC HERNIA 08/06/2011 Ot 250.00 DIAB NEVAEH WO COMPL, TYPE II OR UNSPEC TY 08/06/2011 Ot 274.9 GOUT NOS 08/06/2011 Ot 276.51 DEHYDRATION 08/06/2011 Ot 280.9 IRON DEFIC ANEMIA NOS 08/06/2011 Ot 308.3 ACUTE STRESS REACT NEC 08/06/2011 Ot 401.9 HYPERTENSION NOS 08/06/2011 Ot 414.00 CORON ATHEROSCLER NOS TYPE VESSEL, NATIV 08/06/2011 Ot 530.81 ESOPHAGEAL REFLUX 08/06/2011 Ot 564.1 IRRITABLE BOWEL SYNDROME 08/06/2011 Ot 584.9 ACUTE RENAL FAILURE, UNSPECIFIED 08/06/2011 Ot 599.0 URIN TRACT INFECTION NOS 08/06/2011 Ot 715.90 OSTEOARTHROS NOS-UNSPEC 08/06/2011 Ot 783.0 ANOREXIA 08/06/2011 Ot V45.81 AORTOCORONARY BYPASS 11/01/2011 Ot 250.00 DIAB NEVAEH WO COMPL, TYPE II OR UNSPEC TY 11/01/2011 Ot 266.2 B-COMPLEX DEFIC NEC 11/01/2011 Ot 274.9 GOUT NOS 11/01/2011 Ot 280.9 IRON DEFIC ANEMIA NOS 11/01/2011 Ot 285.21 ANEMIA IN CHRONIC KIDNEY DISEASE 11/01/2011 Ot 300.00 ANXIETY STATE NOS 11/01/2011 Ot 405.01 MAL RENOVASC HYPERTENS 11/01/2011 Ot 414.01 CORONARY ATHEROSCLEROSIS OF [place] CORON 11/01/2011 Ot 530.81 ESOPHAGEAL REFLUX 11/01/2011 Ot 564.1 IRRITABLE BOWEL SYNDROME 11/01/2011 Ot 584.9 ACUTE RENAL FAILURE, UNSPECIFIED 11/01/2011 Ot 585.9 CHRONIC KIDNEY DISEASE, UNSPECIFIED 11/01/2011 Ot 783.0 ANOREXIA 11/01/2011 Ot 783.21 LOSS OF WEIGHT 11/01/2011 Ot V15.88 HISTORY OF FALL 11/01/2011 Ot V45.81 AORTOCORONARY BYPASS 03/26/2012 Ot 285.1 AC POSTHEMORRHAG ANEMIA 03/26/2012 Ot 285.21 ANEMIA IN CHRONIC KIDNEY DISEASE 03/26/2012 Ot 285.9 ANEMIA NOS 03/26/2012 Ot 405.91 RENOVASC HYPERTENSION 03/26/2012 Ot 585.4 CHRONIC KIDNEY DISEASE, STAGE IV (SEVERE 07/02/2012 JAGDISH PARRISH DO Ot 285.1 AC POSTHEMORRHAG ANEMIA 07/02/2012 JAGDISH PARRISH DO Ot 285.21 ANEMIA IN CHRONIC KIDNEY DISEASE 07/02/2012 JAGDISH PARRISH DO Ot 405.91 RENOVASC HYPERTENSION 07/02/2012 JAGDISH PARRISH DO Ot 585.4 CHRONIC KIDNEY DISEASE, STAGE IV (SEVERE 09/12/2012 JAGDISH PARRISH DO Ot 250.00 DIAB NEVAEH WO COMPL, TYPE II OR UNSPEC TY 09/12/2012 JAGDISH PARRISH DO Ot 266.2 B-COMPLEX DEFIC NEC 09/12/2012 JAGDISH PARRISH DO Ot 272.4 HYPERLIPIDEMIA NEC/NOS 09/12/2012 JAGDISH PARRISH DO Ot 274.9 GOUT NOS 09/12/2012 JAGDISH PARRISH DO Ot 278.00 OBESITY, NOS 09/12/2012 JAGDISH PARRISH DO Ot 280.9 IRON DEFIC ANEMIA NOS 09/12/2012 JAGDISH PARRISH DO Ot 285.21 ANEMIA IN CHRONIC KIDNEY DISEASE 09/12/2012 JAGDISH PARRISH DO Ot 300.00 ANXIETY STATE NOS 09/12/2012 JAGDISH PARRISH DO Ot 311 DEPRESSIVE DISORDER NEC 09/12/2012 JAGDISH PARRISH DO Ot 405.91 RENOVASC HYPERTENSION 09/12/2012 JAGDISH PARRISH DO Ot 414.00 CORON ATHEROSCLER NOS TYPE VESSEL, NATIV 09/12/2012 JAGDISH PARRISH DO Ot 530.81 ESOPHAGEAL REFLUX 09/12/2012 JAGDISH PARRISH DO, Ot 564.1 IRRITABLE BOWEL SYNDROME 09/12/2012 JAGDISH PARRISH DO Ot 585.9 CHRONIC KIDNEY DISEASE, UNSPECIFIED 09/12/2012 JAGDISH PARRISH DO Ot 599.0 URIN TRACT INFECTION NOS 09/12/2012 JAGDISH PARRISH DO Ot 715.90 OSTEOARTHROS NOS-UNSPEC 09/12/2012 JAGDISH PARRISH DO Ot 786.59 CHEST PAIN NEC 09/12/2012 JAGDISH PARRISH DO, Ot V45.81 AORTOCORONARY BYPASS 09/12/2012 JAGDISH PARRISH DO, Ot V85.23 BODY MASS INDEX 27.0-27.9, ADULT 10/08/2012 JAGDISH PARRISH DO Ot 285.21 ANEMIA IN CHRONIC KIDNEY DISEASE 10/08/2012 JAGDISH PARRISH DO Ot 405.91 RENOVASC HYPERTENSION 10/08/2012 JAGDISH PARRISH DO, Ot 585.4 CHRONIC KIDNEY DISEASE, STAGE IV (SEVERE 01/07/2013 JAGDISH PARRISH DO, Ot 285.21 ANEMIA IN CHRONIC KIDNEY DISEASE 01/07/2013 JAGDISH PARRISH DO, Ot 405.91 RENOVASC HYPERTENSION 01/07/2013 JAGDISH PARRISH DO, Ot 585.4 CHRONIC KIDNEY DISEASE, STAGE IV (SEVERE 03/23/2013 JAGDISH PARRISH DO Ot 250.00 DIAB NEVAEH WO COMPL, TYPE II OR UNSPEC TY 03/23/2013 JAGDISH PARRISH DO Ot 274.9 GOUT NOS 03/23/2013 JAGDISH PARRISH DO Ot 276.51 DEHYDRATION 03/23/2013 JAGDISH PARRISH DO Ot 278.00 OBESITY, NOS 03/23/2013 JAGDISH PARRISH DO Ot 280.9 IRON DEFIC ANEMIA NOS 03/23/2013 JAGDISH PARRISH DO Ot 285.29 ANEMIA OF OTHER CHRONIC DISEASE 03/23/2013 JAGDISH PARRISH DO Ot 300.00 ANXIETY STATE NOS 03/23/2013 JAGDISH PARRISH DO Ot 311 DEPRESSIVE DISORDER NEC 03/23/2013 JAGDISH PARRISH DO Ot 405.91 RENOVASC HYPERTENSION 03/23/2013 JAGDISH PARRISH DO Ot 414.00 CORON ATHEROSCLER NOS TYPE VESSEL, NATIV 03/23/2013 JAGDISH PARRISH DO Ot 530.81 ESOPHAGEAL REFLUX 03/23/2013 JAGDISH PARRISH DO, Ot 562.11 DIVERTICULITIS COLON (W/O MENT OF HEMORR 03/23/2013 JAGDISH PARRISH DO, Ot 564.00 UNSPEC CONSTIPATION 03/23/2013 JAGDISH PARRISH DO, Ot 564.1 IRRITABLE BOWEL SYNDROME 03/23/2013 JAGDISH PARRISH DO, Ot 585.4 CHRONIC KIDNEY DISEASE, STAGE IV (SEVERE 03/23/2013 JAGDISH PARRISH DO, Ot 599.0 URIN TRACT INFECTION NOS 03/23/2013 JAGDISH PARRISH DO, Ot 729.82 CRAMP IN LIMB 03/23/2013 JAGDISH PARRISH DO, Ot 759.0 ANOMALIES OF SPLEEN 03/23/2013 JAGDISH PARRISH DO, Ot 787.01 NAUSEA WITH VOMITING 03/23/2013 JAGDISH PARRISH DO, Ot 789.04 ABDOMINAL PAIN, LEFT LOWER QUADRANT 03/23/2013 JAGDISH PARRISH DO, Ot 790.5 ABN SERUM ENZY LEVEL NEC 03/23/2013 JAGDISH PARRISH DO, Ot V45.81 AORTOCORONARY BYPASS 03/23/2013 JAGDISH PARRISH DO, Ot V58.66 LONG-TERM (CURRENT) USE OF ASPIRIN 03/23/2013 JAGDISH PARRISH DO, Ot V58.69 [facility],,CURRENT USE 03/23/2013 AJGDISH PARRISH DO, Ot V85.24 BODY MASS INDEX 28.0-28.9, ADULT 04/08/2013 JAGDISH PARRISH DO, Ot 285.1 AC POSTHEMORRHAG ANEMIA 04/08/2013 JAGDISH PARRISH DO, Ot 285.21 ANEMIA IN CHRONIC KIDNEY DISEASE 04/08/2013 JAGDISH PARRISH DO, Ot 285.9 ANEMIA NOS 04/08/2013 JAGDISH PARRISH DO Ot 405.91 RENOVASC HYPERTENSION 04/08/2013 JAGDISH PARRISH DO, Ot 585.4 CHRONIC KIDNEY DISEASE, STAGE IV (SEVERE 04/28/2013 JAGDISH PARRISH DO Ot 250.00 DIAB NEVAEH WO COMPL, TYPE II OR UNSPEC TY 04/28/2013 JAGDISH PARRISH DO, Ot 266.2 B-COMPLEX DEFIC NEC 04/28/2013 JAGDISH PARRISH DO, Ot 274.9 GOUT NOS 04/28/2013 JAGDISH PARRISH DO Ot 276.51 DEHYDRATION 04/28/2013 JAGDISH PARRISH DO Ot 278.00 OBESITY, NOS 04/28/2013 JAGDISH PARRISH DO Ot 280.9 IRON DEFIC ANEMIA NOS 04/28/2013 JAGDISH PARRISH DO Ot 285.29 ANEMIA OF OTHER CHRONIC DISEASE 04/28/2013 JAGDISH PARRISH DO Ot 300.00 ANXIETY STATE NOS 04/28/2013 JAGDISH PARRISH DO Ot 403.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, UNSPEC, W CHR KD ST 04/28/2013 JAGDISH PARRISH DO Ot 414.00 CORON ATHEROSCLER NOS TYPE VESSEL, NATIV 04/28/2013 JAGDISH PARRISH DO Ot 530.81 ESOPHAGEAL REFLUX 04/28/2013 JAGDISH PARRISH DO Ot 564.1 IRRITABLE BOWEL SYNDROME 04/28/2013 JAGDISH PARRISH DO Ot 585.5 CHRONIC KIDNEY DISEASE, STAGE V 04/28/2013 JAGDISH PARRISH DO Ot 715.90 OSTEOARTHROS NOS-UNSPEC 04/28/2013 JAGDISH PARRISH DO Ot 787.01 NAUSEA WITH VOMITING 04/28/2013 JAGDISH PARRISH DO Ot V45.81 AORTOCORONARY BYPASS 07/08/2013 JAGDISH PARRISH DO Ot 285.1 AC POSTHEMORRHAG ANEMIA 07/08/2013 JAGDISH PARRISH DO Ot 285.21 ANEMIA IN CHRONIC KIDNEY DISEASE 07/08/2013 JAGDISH PARRISH DO Ot 285.9 ANEMIA NOS 07/08/2013 JAGDISH PARRISH DO Ot 405.91 RENOVASC HYPERTENSION 07/08/2013 JAGDISH PARRISH DO Ot 585.4 CHRONIC KIDNEY DISEASE, STAGE IV (SEVERE 08/21/2013 SARA OAKLEY MD Ot 250.00 DIAB NEVAEH WO COMPL, TYPE II OR UNSPEC TY 08/21/2013 SARA OAKLEY MD Ot 585.6 END STAGE RENAL DISEASE 08/21/2013 SARA OAKLEY MD Ot 786.50 CHEST PAIN NOS 08/21/2013 SARA OAKLEY MD Ot V45.11 RENAL DIALYSIS STATUS 08/21/2013 SARA OAKLEY MD Ot V58.69 [facility],CURRENT USE 11/29/2013 HAIDER AVENDANO DO Ot 727.61 ROTATOR CUFF RUPTURE 11/29/2013 HAIDER AVENDANO DO Ot V57.1 PHYSICAL THERAPY NEC 01/28/2014 Ot 840.4 01/28/2014 Ot E000.8 01/28/2014 Ot E849.0 01/28/2014 Ot E888.9 01/28/2014 Ot V72.84 01/28/2014 MIGUEL ANGEL BATEMAN Ot 786.05 01/28/2014 Ot 285.1 01/28/2014 Ot 285.21 01/28/2014 Ot 285.9 01/28/2014 Ot 405.91 01/28/2014 Ot 585.4 01/28/2014 JAGDISH PARRISH DO Ot 715.91 01/28/2014 JAGDISH PARRISH DO Ot 726.10 01/28/2014 JAGDISH PARRISH DO Ot 840.5 01/28/2014 JAGDISH PARRISH DO Ot 840.6 01/28/2014 JAGDISH PARRISH DO Ot E000.8 01/28/2014 JAGDISH PARRISH DO Ot E849.6 01/28/2014 JAGDISH PARRISH DO Ot E888.9 02/27/2014 JAGDISH PARRISH DO Ot 959.6 02/27/2014 JAGDISH PARRISH DO Ot E000.8 02/27/2014 JAGDISH PARRISH DO Ot E888.9 11/06/2014 BELTRAN MEZA TRAIN CALLER Ot 793.19 11/27/2014 BELTRAN MEZA TRAIN CALLER Ot 793.19 12/04/2014 BELTRAN MEZA TRAIN CALLER Ot 793.19 02/07/2015 Ot 840.4 02/07/2015 Ot E000.8 02/07/2015 Ot E849.0 02/07/2015 Ot E888.9 02/07/2015 Ot V72.84 02/07/2015 MIGUEL ANGEL BATEMAN Ot 786.05 02/07/2015 Ot 285.1 02/07/2015 Ot 285.21 02/07/2015 Ot 285.9 02/07/2015 Ot 405.91 02/07/2015 Ot 585.4 02/07/2015 JAGDISH PARRISH DO Ot 715.91 02/07/2015 JAGDISH PARRISH DO Ot 726.10 02/07/2015 JAGDISH PARRISH DO Ot 840.5 02/07/2015 JAGDISH PARRISH DO Ot 840.6 02/07/2015 JAGDISH PARRISH DO Ot E000.8 02/07/2015 JAGDISH PARRISH DO Ot E849.6 02/07/2015 JAGDISH PARRISH DO Ot E888.9 02/07/2015 JAGDISH PARRISH DO Ot 959.6 02/07/2015 JAGDISH PARRISH DO Ot E000.8 02/07/2015 JAGDISH PARRISH DO Ot E888.9 02/07/2015 BELTRAN MEZA APRN Ot 793.19 02/07/2015 FABIAN VERGARA MD Ot E11.9 TYPE 2 DIABETES MELLITUS WITHOUT COMPLIC 02/07/2015 FABIAN VERGARA MD Ot N18.6 END STAGE RENAL DISEASE 02/07/2015 FABIAN VERGARA MD Ot R10.30 LOWER ABDOMINAL PAIN, UNSPECIFIED 02/07/2015 FABIAN VERGARA MD Ot Z79.899 OTHER SKIING INSTRUCTOR (CURRENT) DRUG THERAPY 02/07/2015 FABIAN VERGARA MD Ot Z99.2 DEPENDENCE ON RENAL DIALYSIS 03/08/2015 Ot 285.1 03/08/2015 Ot 285.21 03/08/2015 Ot 285.9 03/08/2015 Ot 405.91 03/08/2015 Ot 585.4 03/08/2015 Ot 285.1 03/08/2015 Ot 285.21 03/08/2015 Ot 285.9 03/08/2015 Ot 405.91 03/08/2015 Ot 585.4 03/11/2015 JAGDISH PARRISH DO Ot D64.9 ANEMIA, UNSPECIFIED 03/11/2015 JAGDISH PARRISH DO Ot E11.9 TYPE 2 DIABETES MELLITUS WITHOUT COMPLIC 03/11/2015 JAGDISH PARRISH DO Ot E87.6 HYPOKALEMIA 03/11/2015 JAGDISH PARRISH DO Ot F32.9 MAJOR DEPRESSIVE DISORDER, SINGLE EPISOD 03/11/2015 JAGDISH PARRISH DO Ot I12.0 HYP CHR KIDNEY DISEASE W STAGE 5 CHR KID 03/11/2015 JAGDISH PARRISH DO Ot I25.10 ATHSCL HEART DISEASE OF [place] CORONARY 03/11/2015 JAGDISH PARRISH DO Ot I50.32 CHRONIC DIASTOLIC (CONGESTIVE) HEART KADEN 03/11/2015 JAGDISH PARRISH DO, Ot J18.9 PNEUMONIA, UNSPECIFIED ORGANISM 03/11/2015 JAGDISH PARRISH DO Ot K21.9 GASTRO-ESOPHAGEAL REFLUX DISEASE WITHOUT 03/11/2015 JAGDISH PARRISH DO Ot K57.90 DVRTCLOS OF INTEST, PART UNSP, W/O PERF 03/11/2015 JAGDISH PARRISH DO Ot N18.6 END STAGE RENAL DISEASE 03/11/2015 JAGDISH PARRISH DO, Ot Z87.11 PERSONAL HISTORY OF PEPTIC ULCER DISEASE 03/11/2015 JAGDISH PARRISH DO Ot Z95.1 PRESENCE OF AORTOCORONARY BYPASS GRAFT 03/11/2015 JAGDISH PARRISH DO Ot Z99.2 DEPENDENCE ON RENAL DIALYSIS 03/11/2015 Ot 840.4 03/11/2015 Ot E000.8 03/11/2015 Ot E849.0 03/11/2015 Ot E888.9 03/11/2015 Ot V72.84 03/11/2015 MIGUEL ANGEL BATEMAN Ot 786.05 03/11/2015 Ot 285.1 03/11/2015 Ot 285.21 03/11/2015 Ot 285.9 03/11/2015 Ot 405.91 03/11/2015 Ot 585.4 03/11/2015 JAGDISH PARRISH DO Ot 715.91 03/11/2015 JAGDISH PARRISH DO Ot 726.10 03/11/2015 JAGDISH PARRISH DO Ot 840.5 03/11/2015 JAGDISH PARRISH DO Ot 840.6 03/11/2015 JAGDISH PARRISH DO Ot E000.8 03/11/2015 JAGDISH PARRISH DO Ot E849.6 03/11/2015 JAGDISH PARRISH DO Ot E888.9 03/11/2015 JAGDISH PARRISH DO Ot 959.6 03/11/2015 JAGDISH PARRISH DO Ot E000.8 03/11/2015 JAGDISH PARRISH DO Ot E888.9 03/11/2015 MEZABELTRAN TRAIN CALLER Ot 793.19 03/14/2015 FABIAN VERGARA MD Ot D64.9 03/14/2015 FABIAN VERGARA MD Ot E11.9 03/14/2015 FABIAN VERGARA MD Ot E87.6 03/14/2015 FABIAN VERGARA MD Ot F32.9 03/14/2015 FABIAN VERGARA MD Ot I12.0 03/14/2015 FABIAN VERGARA MD Ot I25.10 03/14/2015 FABIAN VERGARA MD Ot I50.32 03/14/2015 FABIAN VERGARA MD Ot J18.9 03/14/2015 FABIAN VERGARA MD Ot K21.9 03/14/2015 FABIAN VERGARA MD Ot K57.90 03/14/2015 FABIAN VERGARA MD Ot N18.6 03/14/2015 FABIAN VERGARA MD Ot Z87.11 03/14/2015 FABIAN VERGARA MD Ot Z95.1 03/14/2015 FABIAN VERGARA MD Ot Z99.2 03/14/2015 FABIAN VERGARA MD Ot D64.9 ANEMIA, UNSPECIFIED 03/14/2015 FABIAN VERGARA MD Ot E11.9 TYPE 2 DIABETES MELLITUS WITHOUT COMPLIC 03/14/2015 FABIAN VERGARA MD Ot E87.6 HYPOKALEMIA 03/14/2015 FABIAN VERGARA MD Ot 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 03/14/2015 FABIAN VERAGRA MD Ot F32.9 MAJOR DEPRESSIVE DISORDER, SINGLE EPISOD 03/14/2015 FABIAN VERGARA MD Ot G93.41 METABOLIC ENCEPHALOPATHY 03/14/2015 FABIAN VERGARA MD Ot I12.0 HYP CHR KIDNEY DISEASE W STAGE 5 CHR KID 03/14/2015 FABIAN VERGARA MD Ot I25.10 ATHSCL HEART DISEASE OF [place] CORONARY 03/14/2015 FABIAN VERGARA MD Ot I50.32 CHRONIC DIASTOLIC (CONGESTIVE) HEART KADEN 03/14/2015 FABIAN VERGARA MD Ot J18.9 PNEUMONIA, UNSPECIFIED ORGANISM 03/14/2015 FABIAN VERGARA MD Ot J20.9 ACUTE BRONCHITIS, UNSPECIFIED 03/14/2015 FABIAN VERGARA MD Ot K21.9 GASTRO-ESOPHAGEAL REFLUX DISEASE WITHOUT 03/14/2015 FABIAN VERGARA MD Ot K57.90 DVRTCLOS OF INTEST, PART UNSP, W/O PERF 03/14/2015 FABIAN VERGARA MD Ot K59.00 CONSTIPATION, UNSPECIFIED 03/14/2015 FABIAN VERGARA MD Ot N18.6 END STAGE RENAL DISEASE 03/14/2015 FABIAN VERGARA MD Ot Z87.11 PERSONAL HISTORY OF PEPTIC ULCER DISEASE 03/14/2015 FABIAN VERGARA MD Ot Z95.1 PRESENCE OF AORTOCORONARY BYPASS GRAFT 03/14/2015 FABIAN VERGARA MD Ot Z99.2 DEPENDENCE ON RENAL DIALYSIS 06/09/2015 SHIRLEY ALVAREZ, JH Long Ot R11.2 NAUSEA WITH VOMITING, UNSPECIFIED 06/09/2015 SHIRLEY ALVAREZ, JH Long Ot Z01.818 ENCOUNTER FOR OTHER PREPROCEDURAL EXAMIN 06/10/2015 SHIRLEY ALVAREZ, JH Long Ot R11.2 06/10/2015 SHIRLEY ALVAREZ, JH Long Ot Z01.818 06/11/2015 SHIRLEY ALVAREZ, JH Long Ot K22.2 ESOPHAGEAL OBSTRUCTION 06/11/2015 SHIRLEY ALVAREZ, JH Long Ot K25.9 GASTRIC ULCER, UNSP ACUTE OR CHRONIC, 06/11/2015 SHIRLEY ALVAREZ, JH Long Ot K29.70 GASTRITIS, UNSPECIFIED, WITHOUT BLEEDING 06/12/2015 SHIRLEY ALVAREZ, JH Long Ot K22.2 06/12/2015 SHIRLEY ALVAREZ, JH Long Ot K25.9 06/12/2015 SHIRLEY ALVAREZ, JH Long Ot K29.70 06/20/2015 JH WATSON MD Ot K22.2 ESOPHAGEAL OBSTRUCTION 06/20/2015 JH WATSON MD Ot K25.9 GASTRIC ULCER, UNSP ACUTE OR CHRONIC, 06/20/2015 JH WATSON MD Ot K29.70 GASTRITIS, UNSPECIFIED, WITHOUT BLEEDING 08/01/2015 OTHER, UNLISTED Ot E04.1 NONTOXIC SINGLE THYROID NODULE 08/01/2015 OTHER, UNLISTED Ot R19.8 OTH SYMPTOMS AND SIGNS INVOLVING THE DGS 08/01/2015 OTHER, UNLISTED Ot R91.8 OTHER NONSPECIFIC ABNORMAL FINDING OF ROBERT 08/13/2015 ALTAF GOEL MD J98.4 Other disorders of lung ALTAF GOEL MD 08/15/2015 ALTAF GOEL MD R06.02 Shortness of breath TARIQ TORRES MD 08/15/2015 Goel Maged Reason R06.02 Shortness of breath 08/15/2015 Goel Maged Final R94.2 Abnormal results of pulmonary function studies 08/22/2015 OTHER, UNLISTED Ot E04.1 NONTOXIC SINGLE THYROID NODULE 08/22/2015 OTHER, UNLISTED Ot R19.8 OTH SYMPTOMS AND SIGNS INVOLVING THE DGS 08/22/2015 OTHER, UNLISTED Ot R91.8 OTHER NONSPECIFIC ABNORMAL FINDING OF ROBERT 09/04/2015 OTHER, UNLISTED Ot E04.1 NONTOXIC SINGLE THYROID NODULE 09/04/2015 OTHER, UNLISTED Ot R19.8 OTH SYMPTOMS AND SIGNS INVOLVING THE DGS 09/04/2015 OTHER, UNLISTED Ot R91.8 OTHER NONSPECIFIC ABNORMAL FINDING OF ROBERT 10/02/2015 MANASA SOLITARIO MD Ot J98.4 OTHER DISORDERS OF LUNG 10/02/2015 MANASA SOLITARIO MD Ot J98.4 OTHER DISORDERS OF LUNG 10/02/2015 MANASA SOLITARIO MD Ot J98.4 OTHER DISORDERS OF LUNG 10/03/2015 MANASA SOLITARIO MD Ot J98.4 OTHER DISORDERS OF LUNG 10/03/2015 MANASA SOLITARIO MD Ot J98.4 OTHER DISORDERS OF LUNG 10/16/2015 Ot 840.4 SPRAIN ROTATOR CUFF 10/16/2015 Ot E000.8 OTHER EXTERNAL CAUSE STATUS 10/16/2015 Ot E849.0 ACCIDENT IN HOME 10/16/2015 Ot E888.9 FALL NOS 10/16/2015 Ot V72.84 EXAM PRE- OPERATIVE NOS 10/16/2015 MIGUEL ANGEL BATEMAN Ot 786.05 SHORTNESS OF BREATH 10/16/2015 Ot 285.1 AC POSTHEMORRHAG ANEMIA 10/16/2015 Ot 285.21 ANEMIA IN CHRONIC KIDNEY DISEASE 10/16/2015 Ot 285.9 ANEMIA NOS 10/16/2015 Ot 405.91 RENOVASC HYPERTENSION 10/16/2015 Ot 585.4 CHRONIC KIDNEY DISEASE, STAGE IV (SEVERE 10/16/2015 JAGDISH PARRISH DO Ot 715.91 OSTEOARTHROS NOS-SHLDER 10/16/2015 JAGDISH PARRISH DO Ot 726.10 BURSAE TENDONS DIS SHLDER NOS 10/16/2015 JAGDISH PARRISH DO Ot 840.5 SPRAIN SUBSCAPULARIS 10/16/2015 JAGDISH PARRISH DO Ot 840.6 SPRAIN SUPRASPINATUS 10/16/2015 JAGDISH PARRISH DO Ot E000.8 OTHER EXTERNAL CAUSE STATUS 10/16/2015 JAGDISH PARRISH DO Ot E849.6 ACCIDENT IN PUBLIC BLDG 10/16/2015 JAGDISH PARRISH DO Ot E888.9 FALL NOS 10/16/2015 JAGDISH PARRISH DO Ot 959.6 HIP THIGH INJURY NOS 10/16/2015 JAGDISH PARRISH DO Ot E000.8 OTHER EXTERNAL CAUSE STATUS 10/16/2015 JAGDISH PARRISH DO Ot E888.9 FALL NOS 10/16/2015 BELTRAN MEZA TRAIN CALLER Ot 793.19 OTHER NONSPECIFIC ABNORMAL FINDING OF ROBERT 10/16/2015 OTHER, UNLISTED Ot E04.1 NONTOXIC SINGLE THYROID NODULE 10/16/2015 OTHER, UNLISTED Ot R19.8 OTH SYMPTOMS AND SIGNS INVOLVING THE DGS 10/16/2015 OTHER, UNLISTED Ot R91.8 OTHER NONSPECIFIC ABNORMAL FINDING OF ROBERT 10/16/2015 ALTAF ALVAREZ, MANASA Long Ot J98.4 OTHER DISORDERS OF LUNG 10/17/2015 Ot 840.4 SPRAIN ROTATOR CUFF 10/17/2015 Ot E000.8 OTHER EXTERNAL CAUSE STATUS 10/17/2015 Ot E849.0 ACCIDENT IN HOME 10/17/2015 Ot E888.9 FALL NOS 10/17/2015 Ot V72.84 EXAM PRE- OPERATIVE NOS 10/17/2015 MIGUEL ANGEL BATEMAN Ot 786.05 SHORTNESS OF BREATH 10/17/2015 Ot 285.1 AC POSTHEMORRHAG ANEMIA 10/17/2015 Ot 285.21 ANEMIA IN CHRONIC KIDNEY DISEASE 10/17/2015 Ot 285.9 ANEMIA NOS 10/17/2015 Ot 405.91 RENOVASC HYPERTENSION 10/17/2015 Ot 585.4 CHRONIC KIDNEY DISEASE, STAGE IV (SEVERE 10/17/2015 JAGDISH PARRISH DO Ot 715.91 OSTEOARTHROS NOS-SHLDER 10/17/2015 JAGDISH PARRISH DO Ot 726.10 BURSAE TENDONS DIS SHLDER NOS 10/17/2015 JAGDISH PARRISH DO Ot 840.5 SPRAIN SUBSCAPULARIS 10/17/2015 JAGDISH PARRISH DO Ot 840.6 SPRAIN SUPRASPINATUS 10/17/2015 JAGDISH PARRISH DO Ot E000.8 OTHER EXTERNAL CAUSE STATUS 10/17/2015 JAGDISH PARRISH DO Ot E849.6 ACCIDENT IN PUBLIC BLDG 10/17/2015 JAGDISH PARRISH DO Ot E888.9 FALL NOS 10/17/2015 JAGDISH PARRISH DO Ot 959.6 HIP THIGH INJURY NOS 10/17/2015 JAGDISH PARRISH DO Ot E000.8 OTHER EXTERNAL CAUSE STATUS 10/17/2015 JAGDISH PARRISH DO Ot E888.9 FALL NOS 10/17/2015 BELTRAN MEZA TRAIN CALLER Ot 793.19 OTHER NONSPECIFIC ABNORMAL FINDING OF ROBETR 10/17/2015 OTHER, UNLISTED Ot E04.1 NONTOXIC SINGLE THYROID NODULE 10/17/2015 OTHER, UNLISTED Ot R19.8 OTH SYMPTOMS AND SIGNS INVOLVING THE DGS 10/17/2015 OTHER, UNLISTED Ot R91.8 OTHER NONSPECIFIC ABNORMAL FINDING OF ROBERT 10/17/2015 MANASA SOLITARIO MD Ot J98.4 OTHER DISORDERS OF LUNG 10/17/2015 MANASA SOLITARIO MD Ot J98.4 OTHER DISORDERS OF LUNG 10/24/2015 MANASA SOLITARIO MD Ot J98.4 OTHER DISORDERS OF LUNG 10/30/2015 MANASA SOLITARIO MD Ot J98.4 OTHER DISORDERS OF LUNG 10/30/2015 MANASA SOLITARIO MD Ot J98.4 OTHER DISORDERS OF LUNG 12/05/2015 N18.6 End stage renal disease BECKY CALIX I 12/05/2015 Z99.2 Dependence on renal dialysis BECKY CALIX I 12/22/2015 ALTAF GOEL MD R94.2 Abnormal results of pulmonary function studies ALTAF GOEL MD 01/05/2016 N18.6 End stage renal disease BECKY CALIX I 01/05/2016 Z99.2 Dependence on renal dialysis BECKY CALIX I 01/07/2016 MANASA ALVAREZ, ALTAF J98.4 Other disorders of lung ALTAF GOEL MD 01/08/2016 N18.6 End stage renal disease WILI ACLIXD I 01/15/2016 N18.6 End stage renal disease WILI CALIXD I 02/03/2016 N18.6 End stage renal disease WILI CALIXD I 02/03/2016 Z99.2 Dependence on renal dialysis BECKY CALIX I 04/28/2016 Ot 840.4 SPRAIN ROTATOR CUFF 04/28/2016 Ot E000.8 OTHER EXTERNAL CAUSE STATUS 04/28/2016 Ot E849.0 ACCIDENT IN HOME 04/28/2016 Ot E888.9 FALL NOS 04/28/2016 Ot V72.84 EXAM PRE- OPERATIVE NOS 04/28/2016 MIGUEL ANGEL BATEMAN Ot 786.05 SHORTNESS OF BREATH 04/28/2016 Ot 285.1 AC POSTHEMORRHAG ANEMIA 04/28/2016 Ot 285.21 ANEMIA IN CHRONIC KIDNEY DISEASE 04/28/2016 Ot 285.9 ANEMIA NOS 04/28/2016 Ot 405.91 RENOVASC HYPERTENSION 04/28/2016 Ot 585.4 CHRONIC KIDNEY DISEASE, STAGE IV (SEVERE 04/28/2016 JAGDISH PARRISH DO Ot 715.91 OSTEOARTHROS NOS-SHLDER 04/28/2016 JAGDISH PARRISH DO Ot 726.10 BURSAE TENDONS DIS SHLDER NOS 04/28/2016 JAGDISH PARRISH DO Ot 840.5 SPRAIN SUBSCAPULARIS 04/28/2016 JAGDISH PARRISH DO Ot 840.6 SPRAIN SUPRASPINATUS 04/28/2016 JAGDISH PARRISH DO Ot E000.8 OTHER EXTERNAL CAUSE STATUS 04/28/2016 JAGDISH PARRISH DO Ot E849.6 ACCIDENT IN PUBLIC BLDG 04/28/2016 JAGDISH PARRISH DO Ot E888.9 FALL NOS 04/28/2016 JAGDISH PARRISH DO Ot 959.6 HIP THIGH INJURY NOS 04/28/2016 JAGDISH PARRISH DO Ot E000.8 OTHER EXTERNAL CAUSE STATUS 04/28/2016 JAGDISH PARRISH DO Ot E888.9 FALL NOS 04/28/2016 BELTRAN MEZA TRAIN CALLER Ot 793.19 OTHER NONSPECIFIC ABNORMAL FINDING OF ROBERT 04/28/2016 OTHER, UNLISTED Ot E04.1 NONTOXIC SINGLE THYROID NODULE 04/28/2016 OTHER, UNLISTED Ot R19.8 OTH SYMPTOMS AND SIGNS INVOLVING THE DGS 04/28/2016 OTHER, UNLISTED Ot R91.8 OTHER NONSPECIFIC ABNORMAL FINDING OF ROBERT 04/28/2016 ALTAF ALVAREZ, MANASA Long Ot J98.4 OTHER DISORDERS OF LUNG 04/29/2016 JAGDISH PARRISH DO Ot R91.8 OTHER NONSPECIFIC ABNORMAL FINDING OF ROBERT 05/20/2016 JAGDISH PARRISH DO Ot R91.8 OTHER NONSPECIFIC ABNORMAL FINDING OF ROBERT 05/26/2016 JAGDISH PARRISH DO Ot R91.8 OTHER NONSPECIFIC ABNORMAL FINDING OF [place] 06/24/2016 HAIDER AVENDANO DO Ot M75.101 UNSP ROTATR-CUFF TEAR/RUPTR OF RIGHT [place] 07/16/2016 HAIDER AVENDANO DO Ot M75.101 UNSP ROTATR-CUFF TEAR/RUPTR OF RIGHT [place] 07/23/2016 HAIDER AVENDANO DO Ot M75.101 UNSP ROTATR-CUFF TEAR/RUPTR OF RIGHT [place] 12/28/2016 JAGDISH PARRISH DO Ot R19.7 DIARRHEA, UNSPECIFIED 01/24/2017 JAGDISH PARRISH DO Ot R19.7 DIARRHEA, UNSPECIFIED 03/27/2017 JAGDISH PARRISH DO Ot R19.7 DIARRHEA, UNSPECIFIED 03/28/2017 N18.6 End stage renal disease WILI CALIXD I 03/28/2017 Z99.2 Dependence on renal dialysis WILI CALIXD I 04/26/2017 N18.6 End stage renal disease YOGI, BECKY I 04/27/2017 N18.6 End stage renal disease YOGI BECKY I 04/27/2017 Z99.2 Dependence on renal dialysis WILI CALIXD I 05/19/2017 VIMAL ALVAREZ, ELISEO Ot R19.7 DIARRHEA, UNSPECIFIED 05/23/2017 ELISEO CELIS MD Ot R19.7 DIARRHEA, UNSPECIFIED 05/31/2017 N18.6 End stage renal disease BECKY CALIX I 06/03/2017 Tannoury, Tawny Admitting Z99.2 06/09/2017 VIMAL ALVAREZ, ELISEO Ot R19.7 DIARRHEA, UNSPECIFIED 06/09/2017 Tannoury, Tawny Final D63.1 Anemia in chronic kidney disease 06/09/2017 Tannoury, Tawny Final E11.22 Type 2 diabetes mellitus with diabetic chronic kidney disease 06/09/2017 Tannoury, Tawny Final E78.5 Hyperlipidemia, unspecified 06/09/2017 Tannoury, Tawny Final E83.39 Other disorders of phosphorus metabolism 06/09/2017 Tannoury, Tawny Final E86.1 Hypovolemia 06/09/2017 Tannoury, Tawny Final E87.6 Hypokalemia 06/09/2017 Tannoury, Tawny Final F32.9 Major depressive disorder, single episode, unspecified 06/09/2017 Tannoury, Tawny Final I12.0 Hypertensive chronic kidney disease with stage 5 chronic kidney disease or 06/09/2017 Tannoury, Tawny Final K44.9 Diaphragmatic hernia without obstruction or gangrene 06/09/2017 Tannoury, Tawny Final K57.90 Diverticulosis of intestine, part unspecified, without perforation or absce 06/09/2017 Tannoury, Tawny Final K63.5 Polyp of colon 06/09/2017 Tannoury, Tawny Final N18.6 End stage renal disease 06/09/2017 Tannoury, Tawny Final R15.9 Full incontinence of feces 06/09/2017 Tannoury, Tawny Final R18.8 Other ascites 06/09/2017 Tannoury, Tawny Admitting R19.7 Diarrhea, unspecified 06/09/2017 Tannoury, Tawny Final R74.0 Nonspecific elevation of levels of transaminase and lactic acid dehydrogena 06/09/2017 Tannoury, Tawny Final Z99.2 Dependence on renal dialysis 06/09/2017 Tannoury, Tawny Final R19.7 Diarrhea, unspecified 06/10/2017 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, recurrent VENUS ALVAREZ, KRISTIN 06/10/2017 D63.1 Anemia in chronic kidney disease VENUS ALVAREZ, [place] 06/10/2017 E83.39 Other disorders of phosphorus metabolism VENUS ALVAREZ, [place] 06/10/2017 E87.6 Hypokalemia VENUS ALVAREZ, [place] 06/10/2017 I95.89 Other hypotension VENUS ALVAREZ, [place] 06/10/2017 N18.6 End stage renal disease VENUS ALVAREZ, [place] 06/10/2017 Z99.2 Dependence on renal dialysis VENUS ALVAREZ, [place] 06/10/2017 D63.1 Anemia in chronic kidney disease YOGIWILI LauD I 06/10/2017 E83.39 Other disorders of phosphorus metabolism WILI CALIXD I 06/10/2017 E87.6 Hypokalemia WILI CALIXD I 06/10/2017 I12.9 Hypertensive chronic kidney disease with stage 1 through stage 4 chronic kidney disease, or unspecified chronic kidney disease WILI CALIXD I 06/10/2017 I95.89 Other hypotension WILI CALIXD I 06/10/2017 N18.6 End stage renal disease MANASA CALIXGARD I 06/10/2017 Z99.2 Dependence on renal dialysis WILI CALIXD I 06/30/2017 N18.6 End stage renal disease YOGIMANASA WHITLEYGARD I 06/30/2017 Z99.2 Dependence on renal dialysis WILI CALIXD I 06/30/2017 N18.6 End stage renal disease YOGIWILI WHITLEYD I 06/30/2017 Z99.2 Dependence on renal dialysis MANASA CALIXGARD I 06/30/2017 N18.6 End stage renal disease YOGI, BECKY I 07/19/2017 N18.6 End stage renal disease YOGI, BECKY I 07/19/2017 VIMAL ALVAREZ, ELISEO Ot R19.7 DIARRHEA, UNSPECIFIED 07/20/2017 JAGDISH PARRISH DO, Ot M47.814 SPONDYLOSIS W/O MYELOPATHY OR RADICULOPA 07/20/2017 JAGDISH PARRISH DO, Ot R07.81 PLEURODYNIA 07/20/2017 JAGDISH PARRISH DO, Ot W19.XXXA UNSPECIFIED FALL, INITIAL ENCOUNTER 07/27/2017 N18.6 End stage renal disease YOGI, BECKY I 07/27/2017 Z99.2 Dependence on renal dialysis BECKY CALIX I 07/27/2017 JAGDISH PARRISH DO, Ot M47.814 SPONDYLOSIS W/O MYELOPATHY OR RADICULOPA 07/27/2017 JAGDISH PARRISH DO, Ot R07.81 PLEURODYNIA 07/27/2017 JAGDISH PARRISH DO, Ot W19.XXXA UNSPECIFIED FALL, INITIAL ENCOUNTER 08/02/2017 ERNESTO DURON MD, Ot D64.9 ANEMIA, UNSPECIFIED 08/02/2017 ERNESTO DURON MD, Ot E11.9 TYPE 2 DIABETES MELLITUS WITHOUT COMPLIC 08/02/2017 ERNESTO DURON MD, Ot F32.9 MAJOR DEPRESSIVE DISORDER, SINGLE EPISOD 08/02/2017 ERNESTO DURON MD, Ot F41.9 ANXIETY DISORDER, UNSPECIFIED 08/02/2017 ERNESTO DUORN MD, Ot G47.30 SLEEP APNEA, UNSPECIFIED 08/02/2017 ERNESTO DURON MD, Ot I25.10 ATHSCL HEART DISEASE OF [place] CORONARY 08/02/2017 ERNESTO DURON MD, Ot K21.9 GASTRO-ESOPHAGEAL REFLUX DISEASE WITHOUT 08/02/2017 ERNESTO DURON MD, Ot S01.81XA LACERATION W/O FOREIGN BODY OF OTH PART 08/02/2017 ERNESTO DURON MD, Ot W18.30XA FALL ON SAME LEVEL, UNSPECIFIED, INITIAL 08/02/2017 ERNESTO DURON MD, Ot Z23 ENCOUNTER FOR IMMUNIZATION 08/02/2017 ERNESTO DURON MD, Ot Z80.0 FAMILY HISTORY OF MALIGNANT NEOPLASM OF 08/02/2017 ERNESTO DURON MD, Ot Z87.19 PERSONAL HISTORY OF OTHER DISEASES OF TH 08/02/2017 ERNESTO DURON MD, Ot Z90.49 ACQUIRED ABSENCE OF OTHER SPECIFIED PART 08/02/2017 ERNESTO DURON MD, Ot Z90.710 ACQUIRED ABSENCE OF BOTH CERVIX AND UTER 08/02/2017 ERNESTO DURON MD, Ot Z95.5 PRESENCE OF CORONARY ANGIOPLASTY IMPLANT 08/02/2017 ERNESTO DURON MD, Ot Z99.2 DEPENDENCE ON RENAL DIALYSIS 08/04/2017 ERNESTO DURON MD, Ot D64.9 ANEMIA, UNSPECIFIED 08/04/2017 ERNESTO DURON MD, Ot E11.9 TYPE 2 DIABETES MELLITUS WITHOUT COMPLIC 08/04/2017 ERNESTO DURON MD, Ot F32.9 MAJOR DEPRESSIVE DISORDER, SINGLE EPISOD 08/04/2017 ERNESTO DURON MD, Ot F41.9 ANXIETY DISORDER, UNSPECIFIED 08/04/2017 ERNESTO DURON MD, Ot G47.30 SLEEP APNEA, UNSPECIFIED 08/04/2017 ERNESTO DURON MD, Ot I25.10 ATHSCL HEART DISEASE OF [place] CORONARY 08/04/2017 ERNESTO DURON MD, Ot K21.9 GASTRO-ESOPHAGEAL REFLUX DISEASE WITHOUT 08/04/2017 ERNESTO DURON MD, Ot S01.81XA LACERATION W/O FOREIGN BODY OF OTH PART 08/04/2017 ERNESTO DURON MD, Ot W18.30XA FALL ON SAME LEVEL, UNSPECIFIED, INITIAL 08/04/2017 ERNESTO DURON MD, Ot Z23 ENCOUNTER FOR IMMUNIZATION 08/04/2017 ERNESTO DURON MD, Ot Z80.0 FAMILY HISTORY OF MALIGNANT NEOPLASM OF 08/04/2017 ERNESTO DURON MD, Ot Z87.19 PERSONAL HISTORY OF OTHER DISEASES OF TH 08/04/2017 ERNESTO DURON MD, Ot Z90.49 ACQUIRED ABSENCE OF OTHER SPECIFIED PART 08/04/2017 ERNESTO DURON MD, Ot Z90.710 ACQUIRED ABSENCE OF BOTH CERVIX AND UTER 08/04/2017 ERNESTO DURON MD, Ot Z95.5 PRESENCE OF CORONARY ANGIOPLASTY IMPLANT 08/04/2017 ERNESTO DURON MD, Ot Z99.2 DEPENDENCE ON RENAL DIALYSIS 08/04/2017 AJGDISH PARRISH DO Ot S69.91XA UNSP INJURY OF RIGHT WRIST, HAND AND FIN 08/08/2017 ERNESTO DURON MD, Ot D64.9 ANEMIA, UNSPECIFIED 08/08/2017 ERNESTO DURON MD, Ot E11.9 TYPE 2 DIABETES MELLITUS WITHOUT COMPLIC 08/08/2017 ERNESTO DURON MD, Ot F32.9 MAJOR DEPRESSIVE DISORDER, SINGLE EPISOD 08/08/2017 ERNESTO DURON MD, Ot F41.9 ANXIETY DISORDER, UNSPECIFIED 08/08/2017 ERNESTO DURON MD, Ot G47.30 SLEEP APNEA, UNSPECIFIED 08/08/2017 ERNESTO DURON MD, Ot I25.10 ATHSCL HEART DISEASE OF [place] CORONARY 08/08/2017 ERNESTO DURON MD, Ot K21.9 GASTRO-ESOPHAGEAL REFLUX DISEASE WITHOUT 08/08/2017 ERNESTO DURON MD, Ot S01.81XA LACERATION W/O FOREIGN BODY OF OTH PART 08/08/2017 ERNESTO DURON MD, Ot W18.30XA FALL ON SAME LEVEL, UNSPECIFIED, INITIAL 08/08/2017 ERNESTO DURON MD, Ot Z23 ENCOUNTER FOR IMMUNIZATION 08/08/2017 ERNESTO DURON MD, Ot Z80.0 FAMILY HISTORY OF MALIGNANT NEOPLASM OF 08/08/2017 ERNESTO DURON MD, Ot Z87.19 PERSONAL HISTORY OF OTHER DISEASES OF TH 08/08/2017 ERNESTO DURON MD, Ot Z90.49 ACQUIRED ABSENCE OF OTHER SPECIFIED PART 08/08/2017 ERNESTO DURON MD, Ot Z90.710 ACQUIRED ABSENCE OF BOTH CERVIX AND UTER 08/08/2017 ERNESTO DURON MD, Ot Z95.5 PRESENCE OF CORONARY ANGIOPLASTY IMPLANT 08/08/2017 ERNESTO DURON MD, Ot Z99.2 DEPENDENCE ON RENAL DIALYSIS 08/09/2017 N18.6 End stage renal disease BECKY CALIX I 08/16/2017 VIMAL ALVAREZ, ELISEO Ot R19.7 DIARRHEA, UNSPECIFIED 08/24/2017 JAGDISH PARRISH DO Ot S69.91XA UNSP INJURY OF RIGHT WRIST, HAND AND FIN 08/30/2017 N18.6 End stage renal disease BECKY CALIX I 08/30/2017 Z99.2 Dependence on renal dialysis BECKY CALIX I 08/30/2017 JAGDISH PARRISH DO, Ot S69.91XA UNSP INJURY OF RIGHT WRIST, HAND AND FIN 09/13/2017 JAGDSIH PARRISH DO, Ot S22.41XA MULTIPLE FRACTURES OF RIBS, RIGHT SIDE, 09/13/2017 JAGDISH PARRISH DO, Ot W19.XXXA UNSPECIFIED FALL, INITIAL ENCOUNTER 09/13/2017 JAGDISH PARRISH DO, Ot S22.41XA MULTIPLE FRACTURES OF RIBS, RIGHT SIDE, 09/13/2017 JAGDISH PARRISH DO, Ot W19.XXXA UNSPECIFIED FALL, INITIAL ENCOUNTER Procedures Code Description Performed By Performed On 54.93 CREATE CUTANRHINAITON Kay Ortiz MD 05/30/2013 90662 Office or other outpatient visit for the evaluation and management of a new patient, which requires ALTAF GOEL MD 08/13/2015 78186 Bronchodilation responsiveness[place] [address], pre- and post-bronchodilator administration TARIQ TORRES MD 08/15/2015 67608 Plethysmography for determination of lung volumes and, when performed, airway resistance TARIQ TORRES MD 08/15/2015 14014 Diffusing capacity (eg, carbon monoxide, membrane) (List separately in addition to code for primary TARIQ TORRES MD 08/15/2015 40804 Bronchodilation responsiveness[place] [address], pre- and post-bronchodilator administration TARIQ TORRES MD 08/15/2015 46934 Plethysmography for determination of lung volumes and, when performed, airway resistance TARIQ TORRES MD 08/15/2015 98553 Diffusing capacity (eg, carbon monoxide, membrane) (List separately in addition to code for primary TARIQ TORRES MD 08/15/2015 94319 Office or other outpatient visit for the evaluation and management of a new patient, which requires ALTAF GOEL MD 09/04/2015 13678 Bronchodilation responsiveness[place] [address], pre- and post-bronchodilator administration TARIQ TORRES MD 09/12/2015 18205 Plethysmography for determination of lung volumes and, when performed, airway resistance TARIQ TORRES MD 09/12/2015 02156 Diffusing capacity (eg, carbon monoxide, membrane) (List separately in addition to code for primary TARIQ TORRES MD 09/12/2015 15466 Office or other outpatient visit for the evaluation and management of a new patient, which requires ALTAF GOEL MD 09/23/2015 04411 Bronchodilation responsiveness[place] [address], pre- and post-bronchodilator administration TARIQ TORRES MD 09/23/2015 29757 Plethysmography for determination of lung volumes and, when performed, airway resistance TARIQ TORRES MD 09/23/2015 91558 Diffusing capacity (eg, carbon monoxide, membrane) (List separately in addition to code for primary TARIQ TORRES MD 09/23/2015 24205 End-stage renal disease ( ESRD) related services for home dialysis per full month, for patients 20 BECKY Pace I 12/05/2015 38836 Office or other outpatient visit for the evaluation and management of an established patient, which ALTAF GOEL MD 12/22/2015 69784 Office or other outpatient visit for the evaluation and management of an established patient, which ALTAF GOEL MD 12/22/2015 67125 End-stage renal disease ( ESRD) related services for home dialysis per full month, for patients 20 BECKY Pace I 12/30/2015 15942 End-stage renal disease ( ESRD) related services for home dialysis per full month, for patients 20 BECKY Pace I 01/05/2016 09818 Bronchodilation responsiveness[place] [address], pre- and post-bronchodilator administration ALTAF GOEL MD 01/07/2016 33141 Gas dilution or washout for determination of lung volumes and, when performed, distribution of ALTAF Sharp MD 01/07/2016 28936 Diffusing capacity (eg, carbon monoxide, membrane) (List separately in addition to code for ALTAF Ramon MD 01/07/2016 35496 Bronchodilation responsiveness[place] [address], pre- and post-bronchodilator administration ALTAF GOEL MD 01/07/2016 91306 Gas dilution or washout for determination of lung volumes and, when performed, distribution of venti ALTAF GOEL MD 01/07/2016 62277 Diffusing capacity (eg, carbon monoxide, membrane) (List separately in addition to code for primary ALTAF GOEL MD 01/07/2016 31301 Dialysis Patient BECKY CALIX I 01/08/2016 13368 Office or other outpatient visit for the evaluation and management of an established patient, which ALTAF GOEL MD 01/12/2016 31292 Dialysis Patient BECKY CALIX I 01/15/2016 97185 Bronchodilation responsiveness[place] [address], pre- and post-bronchodilator administration ALTAF GOEL MD 02/01/2016 38099 Gas dilution or washout for determination of lung volumes and, when performed, distribution of venti ALTAF GOEL MD 02/01/2016 14153 Diffusing capacity (eg, carbon monoxide, membrane) (List separately in addition to code for primary ALTAF GOEL MD 02/01/2016 60385 End-stage renal disease ( ESRD) related services for home dialysis per full month, for patients 20 BECKY Pace I 02/03/2016 44854 End-stage renal disease ( ESRD) related services for home dialysis per full month, for patients 20 BECKY Pace I 02/06/2016 72413 Office or other outpatient visit for the evaluation and management of an established patient, which ALTAF GOEL MD 02/06/2016 07282 Bronchodilation responsiveness[place] [address], pre- and post-bronchodilator administration ALTAF GOEL MD 02/11/2016 01011 Gas dilution or washout for determination of lung volumes and, when performed, distribution of venti ALTAF GOEL MD 02/11/2016 25437 Diffusing capacity (eg, carbon monoxide, membrane) (List separately in addition to code for primary ALTAF GOEL MD 02/11/2016 42567 End-stage renal disease ( ESRD) related services for home dialysis per full month, for patients 20 BECKY Pace I 04/26/2017 06707 Dialysis Patient BECKY CALIX I 04/26/2017 33306 End-stage renal disease ( ESRD) related services for home dialysis per full month, for patients 20 BECKY Pace I 04/27/2017 76982 End-stage renal disease ( ESRD) related services for home dialysis per full month, for patients 20 BECKY Pace I 05/26/2017 48372 Dialysis Patient BECKY CALIX I 05/31/2017 [id number] Excision of Sigmoid Colon , Via Natural or Artificial Opening Endoscopic, Di 06/06/2017 87045 Initial hospital care, per day, for the evaluation and management of a patient, which requires KRISTIN Cuevas MD 06/10/2017 91031 Subsequent hospital care, per day, for the evaluation and management of a patient, which requires at BECKY CALIX I 06/10/2017 50747 Subsequent hospital care, per day, for the evaluation and management of a patient, which requires at BECKY CALIX I 06/10/2017 00758 End-stage renal disease ( ESRD) related services for home dialysis per full month, for patients 20 murali DANGELOHBMANASA LauBECKY I 06/30/2017 61016 End-stage renal disease ( ESRD) related services for home dialysis per full month, for patients 20 murali DANGELOHBMANASA LauBECKY I 06/30/2017 77243 Dialysis Patient WILI CALIXD I 06/30/2017 31182 Initial hospital care, per day, for the evaluation and management of a patient, which requires KRISTIN Cuevas MD 07/15/2017 11785 Subsequent hospital care, per day, for the evaluation and management of a patient, which requires at BECKY CALIX I 07/15/2017 48120 Subsequent hospital care, per day, for the evaluation and management of a patient, which requires at BECKY CALIX I 07/15/2017 15296 Dialysis Patient MANASA CALIXGARD I 07/19/2017 87220 End-stage renal disease ( ESRD) related services for home dialysis per full month, for patients 20 murali DANGELOHBMANASA LauBECKY I 07/27/2017 73767 End-stage renal disease ( ESRD) related services for home dialysis per full month, for patients 20 murali CALIX EDGARD I 08/02/2017 07656 End-stage renal disease ( ESRD) related services for home dialysis per full month, for patients 20 BECKY Pace I 08/03/2017 84166 Dialysis Patient BECKY CALIX I 08/09/2017 29605 End-stage renal disease ( ESRD) related services for home dialysis per full month, for patients 20 BECKY Pace I 08/10/2017 51325 End-stage renal disease ( ESRD) related services for home dialysis per full month, for patients 20 BECKY Pace I 08/19/2017 86326 End-stage renal disease ( ESRD) related services for home dialysis per full month, for patients 20 BECKY Pace I 08/30/2017 Results Test Result Range CHEM/HEM PROFILE-BEDSIDE - 01/22/14 16:33 POTASSIUM 3.6 mmol/L 3.5-5.3 METHOD Bedside ANION GAP 15 mmol/L 10-20 METHOD Bedside GLUCOSE 98 mg/dL 70-99 BLOOD UREA NITROGEN 57 mg/dL 7-20 CREATININE 4.8 mg/dL 0.6-1.0 HEMOGLOBIN 11.2 gm/dL 12.0-16.0 HEMATOCRIT 33.0 % 37.0-47.0 SODIUM 141 mmol/L 135-148 CHLORIDE 104 mmol/L 98-110 CARBON DIOXIDE 27 mmol/L 21-32 CALCIUM IONIZED 5.1 mg/dL 4.5-5.3 TROPONIN I BEDSIDE - 01/22/14 16:35 METHOD Bedside TROPONIN I < 0.04 ng/mL < 0.11 CBC W/DIFF - 01/22/14 16:36 EOSINOPHIL # 0.2 k/cumm 0.1-0.5 EOSINOPHIL % 3 % 2-4 GRANULOCYTE # 4.7 k/cumm 2.0-9.0 GRANULOCYTE % 70 % 50-75 LYMPHOCYTE # 1.4 k/cumm 1.0-4.0 LYMPHOCYTE % 21 % 20-30 MEAN CELL HGB 32.3 pg 27.0-33.0 MEAN CELL HGB CONCENTRATION 31.9 g/dL 32.0-37.0 MEAN CELL VOLUME 101.4 fl 80.0-100.0 MONOCYTE # 0.4 k/cumm 0.1-1.0 MONOCYTE % 6 % 4-6 RED BLOOD CELL 3.56 m/cumm 4.00-6.00 RED CELL DISTRIBUTION WIDTH 14.2 % 11.0-15.6 WHITE BLOOD CELL 6.8 k/cumm 5.0-10.0 HEMOGLOBIN 11.5 gm/dL 12.0-16.0 HEMATOCRIT 36.1 % 37.0-47.0 PLATELET COUNT 247 k/cumm 150-400 HEPATIC FUNCTION PANEL - 01/22/14 16:36 BILI UNCONJUGATED 0.1 mg/dL 0.0-0.7 AST/SGOT 18 Units/L 10-37 ALT/SGPT 26 Units/L < 66 TOTAL PROTEIN 6.6 gm/dL 6.4-8.2 ALBUMIN 3.1 gm/dL 3.4-5.0 BILI TOTAL 0.2 mg/dL 0.0-1.0 ALKALINE PHOSPHATASE TOTAL 69 IU/L 45-117 BILI CONJUGATED < 0.1 mg/dL 0.0-0.3 LIPASE - 01/22/14 16:36 LIPASE 279 Units/L 73-393 URINALYSIS, ROUTINE - 01/22/14 17:26 UA LEUKOCYTE ESTERASE DIPSTICK NEGATIVE NEGATIVE UA NITRITE DIPSTICK NEGATIVE NEGATIVE UA PROTEIN DIPSTICK 1+ NEGATIVE UA GLUCOSE DIPSTICK NEGATIVE NEGATIVE UA KETONE DIPSTICK NEGATIVE NEGATIVE UA UROBILINOGEN DIPSTICK NORMAL NORMAL UA BILIRUBIN DIPSTICK NEGATIVE NEGATIVE UA BLOOD DIPSTICK TRACE NEGATIVE UA COMMENT UA SPECIFIC GRAVITY 1.010 1.015-1.025 UR PH 5.0 5.0-7.0 UA MICROSCOPIC - 01/22/14 17:26 UA BACTERIA 2+ NEGATIVE UA EPITHELIAL CELLS 3+ epi/hpf 0 - 1+ UA HYALINE CAST 0-1 cast/lpf 0 - 1 UA RBC 0 rbc/hpf 0 - 3 UA VOLUME FOR EXAM 12.0 mL (12mL STD) UA WBC 2-5 wbc/hpf 0 - 5 UA YEAST 1+ NEGATIVE Clostridium difficile detection - 12/28/16 16:00 C DIFF MOLECULAR RESULT Positive for toxigenic C diff by DNA amplification NRG CALL POSITIVES (F1 HELP) CALLED TO DR PARRISH AT 1045, 11-2-17KD NRG C DIFFICILE AG + TOXIN A/B. - 12/28/16 16:00 FREE TEXT ENTRY 2 POSITIVE FOR GDH ANTIGEN NRG FREE TEXT ENTRY 3 NEGATIVE FOR TOXINS A AND B NRG RESULTS INDETERMINANT; MOLECULAR TEST TO FOLLOW NRG Stool bacteria identification by culture - 12/28/16 16:00 PARASITE COMPLETE EXAM STOOL - 12/28/16 16:00 PARASITE COMPLETE EXAM STOOL No Parasites seen NRG * Reference lab test name - 02/18/17 16:00 * Reference lab test results 72HR FECAL FAT NRG C DIFFICILE AG + TOXIN A/B. - 05/21/17 08:34 C DIFFICILE AG + TOXIN A/B. TNP NRG C DIFFICILE AG + TOXIN A/B. - 06/01/17 15:30 RESULTS NEGATIVE FOR ANTIGEN AND TOXIN A/B NRG Lipid Panel - 06/03/17 16:54 Cardiac Risk 3.1 0.0-5.0 Cholesterol 153 mg/dL 0-199 HDL Cholesterol 50 mg/dL 40-84 LDL Cholesterol 67 mg/dL 0-130 Triglycerides 182 mg/dL 0-149 VLDL Cholesterol 36 mg/dL 0-28 CBC With Platelet and Differential - 06/03/17 17:10 Absolute Basophils 0.02 10*3/uL 0.00-0.20 Absolute Eosinophils 0.06 10*3/uL 0.00-0.50 Absolute Lymphocytes 0.87 10*3/uL 0.80-3.30 Absolute Monocytes 0.49 10*3/uL 0.30-1.00 Absolute Neutrophils 6.19 10*3/uL 1.90-7.00 Basophils 0 % 0-2 Eosinophils 1 % 0-4 HCT 29.5 % 37.0-47.0 HGB 9.5 g/dL 12.0-16.0 Immature Granulocytes 0.3 % 0.0-1.0 Lymphocytes 11 % 20-46 MCH 33.0 pg 27.0-32.0 MCHC 32.2 g/dL 32.0-36.0 MCV 102.4 fL 82.0-99.0 Monocytes 6 % 4-11 MPV 10.3 fL 9.4-12.4 Neutrophils 81 % 51-75 Nucleated RBC Automated 0.0 /100 WBC Platelet Count 243 K/uL 150-400 RBC 2.88 10*6/uL 4.00-5.20 RDW 13.4 % 11.5-14.5 WBC 7.6 K/uL 4.8-10.8 Troponin - 06/03/17 17:10 Troponin 0.08 ng/mL <0.06 Comprehensive Metabolic Panel (CMP) - 06/03/17 17:10 Albumin 3.2 g/dL 3.5-4.8 Alkaline Phosphatase 280 U/L 26-104 ALT (SGPT) 771 U/L 14-54 Anion Gap 15 mEq/L 3-20 AST (SGOT) 809 U/L 15-41 Bilirubin Total 0.5 mg/dL 0.2-1.2 BUN 54 mg/dL 4-20 Calcium 9.6 mg/dL 8.6-10.0 Chloride 96 mEq/L 99-109 CO2 26 mEq/L 22-32 Creatinine 8.44 mg/dL 0.44-1.03 Globulin 3.2 g/dL 1.9-4.3 Glucose 137 mg/dL 70-100 Potassium 4.0 mEq/L 3.6-5.1 Protein 6.4 g/dL 6.1-7.9 Sodium 137 mEq/L 136-144 eGFR - 06/03/17 17:10 eGFR 5 mL/min >60 Magnesium - 06/03/17 17:10 Magnesium 2.1 mg/dL 1.8-2.5 Glucose NPT - 06/03/17 20:33 Glucose NPT 123 mg/dL 70-100 Troponin - 06/03/17 21:36 Troponin 0.07 ng/mL <0.06 CBC With Platelet and Differential - 06/04/17 04:15 Absolute Basophils 0.01 10*3/uL 0.00-0.20 Absolute Eosinophils 0.07 10*3/uL 0.00-0.50 Absolute Lymphocytes 0.74 10*3/uL 0.80-3.30 Absolute Monocytes 0.31 10*3/uL 0.30-1.00 Absolute Neutrophils 4.80 10*3/uL 1.90-7.00 Basophils 0 % 0-2 Eosinophils 1 % 0-4 HCT 25.8 % 37.0-47.0 HGB 8.3 g/dL 12.0-16.0 Immature Granulocytes 0.5 % 0.0-1.0 Lymphocytes 12 % 20-46 MCH 32.4 pg 27.0-32.0 MCHC 32.2 g/dL 32.0-36.0 MCV 100.8 fL 82.0-99.0 Monocytes 5 % 4-11 MPV 10.2 fL 9.4-12.4 Neutrophils 81 % 51-75 Nucleated RBC Automated 0.0 /100 WBC Platelet Count 223 K/uL 150-400 RBC 2.56 10*6/uL 4.00-5.20 RDW 13.4 % 11.5-14.5 WBC 6.0 K/uL 4.8-10.8 Troponin - 06/04/17 04:15 Troponin 0.06 ng/mL <0.06 Magnesium - 06/04/17 04:15 Magnesium 2.0 mg/dL 1.8-2.5 Comprehensive Metabolic Panel (CMP) - 06/04/17 04:15 Albumin 2.8 g/dL 3.5-4.8 Alkaline Phosphatase 244 U/L 26-104 ALT (SGPT) 634 U/L 14-54 Anion Gap 13 mEq/L 3-20 AST (SGOT) 393 U/L 15-41 Bilirubin Total 0.3 mg/dL 0.2-1.2 BUN 55 mg/dL 4-20 Calcium 9.0 mg/dL 8.6-10.0 Chloride 99 mEq/L 99-109 CO2 28 mEq/L 22-32 Creatinine 8.13 mg/dL 0.44-1.03 Globulin 2.7 g/dL 1.9-4.3 Glucose 108 mg/dL 70-100 Potassium 3.5 mEq/L 3.6-5.1 Protein 5.5 g/dL 6.1-7.9 Sodium 140 mEq/L 136-144 Phosphorus - 06/04/17 04:15 Phosphorus 6.8 mg/dL 2.4-4.7 eGFR - 06/04/17 04:15 eGFR 5 mL/min >60 CBC With Platelet and Differential - 06/05/17 06:53 Absolute Basophils 0.01 10*3/uL 0.00-0.20 Absolute Eosinophils 0.17 10*3/uL 0.00-0.50 Absolute Lymphocytes 1.10 10*3/uL 0.80-3.30 Absolute Monocytes 0.40 10*3/uL 0.30-1.00 Absolute Neutrophils 3.82 10*3/uL 1.90-7.00 Basophils 0 % 0-2 Eosinophils 3 % 0-4 HCT 25.8 % 37.0-47.0 HGB 8.4 g/dL 12.0-16.0 Immature Granulocytes 0.5 % 0.0-1.0 Lymphocytes 20 % 20-46 MCH 32.9 pg 27.0-32.0 MCHC 32.6 g/dL 32.0-36.0 MCV 101.2 fL 82.0-99.0 Monocytes 7 % 4-11 MPV 10.3 fL 9.4-12.4 Neutrophils 69 % 51-75 Nucleated RBC Automated 0.0 /100 WBC Platelet Count 213 K/uL 150-400 RBC 2.55 10*6/uL 4.00-5.20 RDW 13.3 % 11.5-14.5 WBC 5.5 K/uL 4.8-10.8 Comprehensive Metabolic Panel (CMP) - 06/05/17 06:53 Albumin 2.6 g/dL 3.5-4.8 Alkaline Phosphatase 190 U/L 26-104 ALT (SGPT) 361 U/L 14-54 Anion Gap 13 mEq/L 3-20 AST (SGOT) 99 U/L 15-41 Bilirubin Total 0.4 mg/dL 0.2-1.2 BUN 55 mg/dL 4-20 Calcium 8.5 mg/dL 8.6-10.0 Chloride 98 mEq/L 99-109 CO2 27 mEq/L 22-32 Creatinine 7.95 mg/dL 0.44-1.03 Globulin 2.5 g/dL 1.9-4.3 Glucose 103 mg/dL 70-100 Potassium 3.3 mEq/L 3.6-5.1 Protein 5.1 g/dL 6.1-7.9 Sodium 138 mEq/L 136-144 Magnesium - 06/05/17 06:53 Magnesium 2.0 mg/dL 1.8-2.5 Phosphorus - 06/05/17 06:53 Phosphorus 5.7 mg/dL 2.4-4.7 eGFR - 06/05/17 06:53 eGFR 5 mL/min >60 Hemoglobin A1C - 06/05/17 06:53 Hemoglobin A1C 5.5 % 4.1-5.6 Estimated Average Glucose - 06/05/17 06:53 Estimated Average Glucose 111.2 mg/dL Iron Profile - 06/05/17 10:23 Iron 105 ug/dL 50-170 Iron Binding Capacity 305 ug/dL 286-569 Percent Saturation 34 % 11-46 Transferrin 205 mg/dL 192-382 Ferritin - 06/05/17 10:23 Ferritin 3647 ng/mL 11-307 Hepatitis Panel - 06/05/17 10:23 Hepatitis A Antibody IGM Negative Hepatitis B Surface Antigen Negative Hepatitis C Total Antibody Negative Hepatitis Core Ab IGM Negative SAURABH Screen - 06/05/17 10:23 SAURABH Screen Negative NA Negative Celiac Disease Serology [place] - 06/05/17 10:23 Immunoglobulin A 107 mg/dL 61 - 356 Anti-Smooth Muscle Ab - 06/05/17 10:23 Anti-Smooth Muscle Ab Negative NA Negative Tissue Transglutaminase IgA - 06/05/17 10:23 Tis.Transglutaminase IgA <1.2 U/mL Mitochondrial Ab, M2 - 06/05/17 10:23 Mitochondrial Ab, M2 <0.1 U CBC With Platelet No Differential - 06/06/17 05:57 HCT 27.1 % 37.0-47.0 HGB 8.7 g/dL 12.0-16.0 MCH 32.5 pg 27.0-32.0 MCHC 32.1 g/dL 32.0-36.0 MCV 101.1 fL 82.0-99.0 MPV 10.3 fL 9.4-12.4 Platelet Count 209 K/uL 150-400 RBC 2.68 10*6/uL 4.00-5.20 RDW 13.4 % 11.5-14.5 WBC 5.4 K/uL 4.8-10.8 Renal Function Panel - 06/06/17 05:57 Albumin 2.7 g/dL 3.5-4.8 Anion Gap 15 mEq/L 3-20 BUN 53 mg/dL 4-20 Calcium 8.9 mg/dL 8.6-10.0 Chloride 97 mEq/L 99-109 CO2 26 mEq/L 22-32 Creatinine 7.48 mg/dL 0.44-1.03 Glucose 103 mg/dL 70-100 Phosphorus 6.0 mg/dL 2.4-4.7 Potassium 3.6 mEq/L 3.6-5.1 Sodium 138 mEq/L 136-144 Magnesium - 06/06/17 05:57 Magnesium 2.0 mg/dL 1.8-2.5 Comprehensive Metabolic Panel (CMP) - 06/06/17 05:57 Alkaline Phosphatase 185 U/L 26-104 ALT (SGPT) 265 U/L 14-54 AST (SGOT) 54 U/L 15-41 Bilirubin Total 0.3 mg/dL 0.2-1.2 Globulin 2.7 g/dL 1.9-4.3 Protein 5.4 g/dL 6.1-7.9 eGFR - 06/06/17 05:57 eGFR 5 mL/min >60 CBC With Platelet No Differential - 06/07/17 04:58 HCT 26.0 % 37.0-47.0 HGB 8.5 g/dL 12.0-16.0 MCH 33.1 pg 27.0-32.0 MCHC 32.7 g/dL 32.0-36.0 MCV 101.2 fL 82.0-99.0 MPV 10.6 fL 9.4-12.4 Platelet Count 210 K/uL 150-400 RBC 2.57 10*6/uL 4.00-5.20 RDW 13.1 % 11.5-14.5 WBC 7.1 K/uL 4.8-10.8 Basic Metabolic Panel (BMP) - 06/07/17 04:58 Anion Gap 12 mEq/L 3-20 BUN 51 mg/dL 4-20 Calcium 9.1 mg/dL 8.6-10.0 Chloride 97 mEq/L 99-109 CO2 28 mEq/L 22-32 Creatinine 7.91 mg/dL 0.44-1.03 Glucose 100 mg/dL 70-100 Potassium 3.6 mEq/L 3.6-5.1 Sodium 137 mEq/L 136-144 Magnesium - 06/07/17 04:58 Magnesium 1.9 mg/dL 1.8-2.5 eGFR - 06/07/17 04:58 eGFR 5 mL/min >60 Phosphorus - 06/07/17 04:58 Phosphorus 6.5 mg/dL 2.4-4.7 Complete blood count (CBC) with automated white blood cell (WBC) differential - 08/02/17 15:49 Blood leukocytes automated count (number/volume) 7.5 10*3/uL 4.3-11.0 Blood erythrocytes automated count (number/volume) 3.12 10*6/uL 4.35-5.85 Venous blood hemoglobin measurement (mass/volume) 10.0 g/dL 11.5-16.0 Blood hematocrit (volume fraction) 31 % 35-52 Automated erythrocyte mean corpuscular volume 100 [foz_us] 80-99 Automated erythrocyte mean corpuscular hemoglobin (mass per erythrocyte) 32 pg 25-34 Automated erythrocyte mean corpuscular hemoglobin concentration measurement ( mass/volume) 32 g/dL 32-36 Automated erythrocyte distribution width ratio 12.7 % 10.0-14.5 Automated blood platelet count (count/volume) 217 10*3/uL 130-400 Automated blood platelet mean volume measurement 10.3 [foz_us] 7.4-10.4 Automated blood neutrophils/100 leukocytes 78 % 42-75 Automated blood lymphocytes/100 leukocytes 11 % 12-44 Blood monocytes/100 leukocytes 8 % 0-12 Automated blood eosinophils/100 leukocytes 2 % 0-10 Automated blood basophils/100 leukocytes 0 % 0-10 Blood neutrophils automated count (number/volume) 5.8 10*3 1.8-7.8 Blood lymphocytes automated count (number/volume) 0.8 10*3 1.0-4.0 Blood monocytes automated count (number/volume) 0.6 10*3 0.0-1.0 Automated eosinophil count 0.2 10*3/uL 0.0-0.3 Automated blood basophil count (count/volume) 0.0 10*3/uL 0.0-0.1 Comprehensive metabolic panel - 08/02/17 15:49 Serum or plasma sodium measurement (moles/volume) 139 mmol/L 135-145 Serum or plasma potassium measurement (moles/volume) 4.4 mmol/L 3.6-5.0 Serum or plasma chloride measurement (moles/volume) 99 mmol/L 98-107 Carbon dioxide 24 mmol/L 21-32 Serum or plasma anion gap determination (moles/volume) 16 mmol/L 5-14 Serum or plasma urea nitrogen measurement (mass/volume) 42 mg/dL 7-18 Serum or plasma creatinine measurement (mass/volume) 8.82 mg/dL 0.60-1.30 Serum or plasma urea nitrogen/creatinine mass ratio 5 NRG Serum or plasma creatinine measurement with calculation of estimated glomerular filtration rate 4 NRG Serum or plasma glucose measurement (mass/volume) 111 mg/dL 70-105 Serum or plasma calcium measurement (mass/volume) 9.6 mg/dL 8.5-10.1 Serum or plasma total bilirubin measurement (mass/volume) 0.5 mg/dL 0.1-1.0 Serum or plasma alkaline phosphatase measurement (enzymatic activity/volume) 82 U/L 40-136 Serum or plasma aspartate aminotransferase measurement (enzymatic activity/ volume) 23 U/L 5-34 Serum or plasma alanine aminotransferase measurement (enzymatic activity/volume ) 21 U/L 0-55 Serum or plasma protein measurement (mass/volume) 6.4 g/dL 6.4-8.2 Serum or plasma albumin measurement (mass/volume) 3.3 g/dL 3.2-4.5 Magnesium - 08/02/17 15:49 Magnesium 2.3 mg/dL 1.8-2.4 Complete urinalysis with reflex to culture - 08/02/17 17:06 Urine color determination YELLOW NRG Urine clarity determination CLEAR NRG Urine pH measurement by test strip 8 5-9 Specific gravity of urine by test strip 1.010 1.016- 1.022 Urine protein assay by test strip, semi-quantitative 3+ NEGATIVE Urine glucose detection by automated test strip 1+ NEGATIVE Erythrocytes detection in urine sediment by light microscopy 2+ NEGATIVE Urine ketones detection by automated test strip NEGATIVE NEGATIVE Urine nitrite detection by test strip NEGATIVE NEGATIVE Urine total bilirubin detection by test strip NEGATIVE NEGATIVE Urine urobilinogen measurement by automated test strip (mass/volume) NORMAL NORMAL Urine leukocyte esterase detection by dipstick NEGATIVE NEGATIVE Automated urine sediment erythrocyte count by microscopy (number/high power field) RARE NRG Automated urine sediment leukocyte count by microscopy (number/high power field ) RARE NRG Bacteria detection in urine sediment by light microscopy FEW NRG Squamous epithelial cells detection in urine sediment by light microscopy 10-25 NRG Crystals detection in urine sediment by light microscopy NONE NRG Casts detection in urine sediment by light microscopy NONE NRG Mucus detection in urine sediment by light microscopy NEGATIVE NRG Complete urinalysis with reflex to culture NO NRG Complete blood count (CBC) with automated white blood cell (WBC) differential - 09/12/17 19:13 Blood leukocytes automated count (number/volume) 9.2 10*3/uL 4.3-11.0 Blood erythrocytes automated count (number/volume) 3.54 10*6/uL 4.35-5.85 Venous blood hemoglobin measurement (mass/volume) 11.5 g/dL 11.5-16.0 Blood hematocrit (volume fraction) 35 % 35-52 Automated erythrocyte mean corpuscular volume 99 [foz_us] 80-99 Automated erythrocyte mean corpuscular hemoglobin (mass per erythrocyte) 33 pg 25-34 Automated erythrocyte mean corpuscular hemoglobin concentration measurement ( mass/volume) 33 g/dL 32-36 Automated erythrocyte distribution width ratio 13.6 % 10.0-14.5 Automated blood platelet count (count/volume) 255 10*3/uL 130-400 Automated blood platelet mean volume measurement 10.0 [foz_us] 7.4-10.4 Automated blood neutrophils/100 leukocytes 82 % 42-75 Automated blood lymphocytes/100 leukocytes 8 % 12-44 Blood monocytes/100 leukocytes 9 % 0-12 Automated blood eosinophils/100 leukocytes 1 % 0-10 Automated blood basophils/100 leukocytes 0 % 0-10 Blood neutrophils automated count (number/volume) 7.6 10*3 1.8-7.8 Blood lymphocytes automated count (number/volume) 0.7 10*3 1.0-4.0 Blood monocytes automated count (number/volume) 0.8 10*3 0.0-1.0 Automated eosinophil count 0.1 10*3/uL 0.0-0.3 Automated blood basophil count (count/volume) 0.0 10*3/uL 0.0-0.1 Comprehensive metabolic panel - 09/12/17 19:13 Serum or plasma sodium measurement (moles/volume) 142 mmol/L 135-145 Serum or plasma potassium measurement (moles/volume) 3.9 mmol/L 3.6-5.0 Serum or plasma chloride measurement (moles/volume) 98 mmol/L 98-107 Carbon dioxide 28 mmol/L 21-32 Serum or plasma anion gap determination (moles/volume) 16 mmol/L 5-14 Serum or plasma urea nitrogen measurement (mass/volume) 49 mg/dL 7-18 Serum or plasma creatinine measurement (mass/volume) 9.83 mg/dL 0.60-1.30 Serum or plasma urea nitrogen/creatinine mass ratio 5 NRG Serum or plasma creatinine measurement with calculation of estimated glomerular filtration rate 4 NRG Serum or plasma glucose measurement (mass/volume) 148 mg/dL 70-105 Serum or plasma calcium measurement (mass/volume) 10.0 mg/dL 8.5-10.1 Serum or plasma total bilirubin measurement (mass/volume) 0.6 mg/dL 0.1-1.0 Serum or plasma alkaline phosphatase measurement (enzymatic activity/volume) 120 U/L 40-136 Serum or plasma aspartate aminotransferase measurement (enzymatic activity/ volume) 29 U/L 5-34 Serum or plasma alanine aminotransferase measurement (enzymatic activity/volume ) 82 U/L 0-55 Serum or plasma protein measurement (mass/volume) 7.3 g/dL 6.4-8.2 Serum or plasma albumin measurement (mass/volume) 3.7 g/dL 3.2-4.5 PT panel in platelet poor plasma by coagulation assay - 09/12/17 19:39 Prothrombin time (PT) in platelet poor plasma by coagulation assay 13.0 s 12.2-14.7 INR in platelet poor plasma or blood by coagulation assay 1.0 0.8-1.4 Activated partial thromboplastin time (aPTT) in platelet poor plasma bycoagulation assay - 09/12/17 19:39 Activated partial thromboplastin time (aPTT) in platelet poor plasma bycoagulation assay 28 s 24-35 Encounters ACCT No. Visit Date/Time Discharge Status Pt. Type Provider Facility Loc./Unit Complaint [id number] 09/12/2017 18:41:00 09/12/2017 20:43:00 DIS Emergency BERHANE CARRILLO APRN [facility] ER RIB FRACTURES [id number] 09/12/2017 09:00:00 09/12/2017 09:00:00 CAN Preadmit JAGDISH PARRISH DO [facility] RAD CVA,LEFT HAND WEAKNESS,HEMIPLGA [id number] 08/17/2017 00:10:00 08/17/2017 23:59:59 CLS Preadmit ELISEO CELIS MD [facility] LAB HX OF DIARRHEA [id number] 05/21/2017 08:57:00 08/16/2017 00:01:00 DIS Outpatient ELISEO CELIS MD [facility] LAB HX OF DIARRHEA [id number] 08/03/2017 11:44:00 08/03/2017 23:59:59 CLS Outpatient JAGDISH PARRISH DO [facility] RAD TRAUMA [id number] 08/02/2017 15:00:00 08/02/2017 18:05:00 DIS Emergency ERNESTO DURON MD [facility] ER FALL [id number] 06/30/2017 15:43:00 06/30/2017 23:59:59 CLS Outpatient JAGDISH PARRISH DO [facility] RAD TRAUMA [id number] 03/28/2017 00:11:00 03/28/2017 23:59:59 CLS Preadmit PARRISHJAGDISH WESLEY DO [facility] LAB R19.7 [id number] 12/27/2016 13:49:00 03/27/2017 00:01:00 DIS Outpatient PARRISH JAGDISH Lynne [facility] LAB R19.7 [id number] 02/18/2017 16:27:00 02/18/2017 23:59:59 CLS Outpatient JAGDISH PARRISH DO [facility] LAB R19.7 [id number] 07/16/2016 13:01:00 07/16/2016 13:30:00 DIS Outpatient JUAN ALBERTO GONZALEZ HAIDER Vickey [facility] REHAB R SHOULDER CHRONIC ROTATOR CUFF TEAR [id number] 04/28/2016 09:49:00 04/28/2016 23:59:59 CLS Outpatient JAGDISH PARRISH DO [facility] RAD F/U PULMONARY NODULE [id number] 10/02/2015 10:50:00 10/02/2015 23:59:59 CLS Outpatient ALTAF ALVAREZ, MANASA Long [facility] RAD LUNG NODULE [id number] 07/30/2015 17:06:00 07/30/2015 23:59:59 CLS Outpatient OTHER, UNLISTED [facility] RAD FREE AIR IN ABD [id number] 06/11/2015 06:46:00 06/11/2015 23:59:59 CLS Outpatient JH WATSON MD [facility] SDC NAUSEA VOMITING [id number] 06/09/2015 05:37:00 06/09/2015 09:41:00 DIS Outpatient JH WATSON MD [facility] PREOP NAUSEA,VOMITING [id number] 03/11/2015 10:38:00 03/14/2015 15:30:00 DIS Inpatient FABIAN VERGARA MD [facility] 4TH SWB,INFECTION/RENAL FAILURE [id number] 03/08/2015 17:15:00 03/11/2015 10:27:00 DIS Inpatient JAGDISH PARRISH DO [facility] 4TH PNEUMONIA [id number] 02/07/2015 13:28:00 02/07/2015 17:12:00 DIS Emergency URSULA ALVAREZ, FABIAN Estrada [facility] ER ABD PAIN [id number] 10/28/2014 14:20:00 10/28/2014 23:59:59 CLS Outpatient BELTRAN MEZA APRN [facility] RAD FREE AIR [id number] 01/28/2014 16:38:00 01/28/2014 23:59:59 CLS Outpatient JAGDISH PARRISH DO [facility] RAD TRAUMA [id number] 11/29/2013 12:49:00 11/29/2013 14:01:00 DIS Outpatient HAIDER AVENDANO DO [facility] REHAB RT SHLD RCT TEAR [id number] 10/26/2013 08:44:00 10/26/2013 23:59:59 CLS Outpatient JAGDISH PARRISH DO [facility] RAD ROTATOR CUFF INJURY [id number] 08/21/2013 08:54:00 08/21/2013 12:00:00 DIS Emergency ADIN ALVAREZ, SARA De La Vega [facility] ER CHEST/BACK/UPPER ABD PAIN [id number] 07/02/2013 08:16:00 07/08/2013 00:01:00 DIS Outpatient JAGDISH PARRISH DO [facility] CHRONIC KIDNEY DISEASE,ACUTE POSTHEMORRIGIC,ANEMIA [id number] 06/26/2013 09:42:00 06/26/2013 23:59:59 CLS Outpatient MIGUEL ANGEL BATEMAN [facility] RAD ESRD, [id number] 04/26/2013 14:12:00 04/28/2013 12:25:00 DIS Inpatient JAGDISH PARRISH DO [facility] 4TH NAUSEA,VOMITING,HTN [id number] 04/02/2013 10:36:00 04/08/2013 00:01:00 DIS Outpatient JAGDISH PARRISH DO [facility] CHRONIC KIDNEY DISEASE,ACUTE POSTHEMORRIGIC,ANEMIA [id number] 03/21/2013 16:38:00 03/23/2013 11:50:00 DIS Inpatient FRANCOIS JAGDISH GONZALEZ [facility] 4TH LLQ PAIN; MILD PANCREATITIS [id number] 12/25/2012 12:19:00 01/07/2013 00:01:00 DIS Outpatient FRANCOIS GONZALEZJAGDISH [facility] CHRONIC KIDNEY DISEASE,ACUTE POSTHEMORRIGIC,ANEMIA [id number] 10/02/2012 12:34:00 10/08/2012 00:01:00 DIS Outpatient FRANCOIS GONZALEZJAGDISH Lynne [facility] CHRONIC KIDNEY DISEASE,ACUTE POSTHEMORRIGIC,ANEMIA [id number] 09/10/2012 20:40:00 09/12/2012 18:15:00 DIS Inpatient FRANCOIS GONZALEZJAGDISH Lynne [facility] ICU CP [id number] 06/26/2012 12:45:00 07/02/2012 00:01:00 DIS Outpatient FRANCOIS GONZALEZ JAGDISH Lynne [facility] CHRONIC KIDNEY DISEASE,ACUTE POSTHEMORRIGIC,ANEMIA [id number] 09/13/2017 16:00:00 ACT Emergency ADIN ALVAREZ, SARA De [place]ega [facility] ER HIGH BP;VISION PROBLEMS [id number] 09/12/2017 17:43:00 ACT Outpatient FRANCOIS GONZALEZ JAGDISH Lynne [facility] RAD TRAUMA [id number] 01/28/2014 16:36:00 Document Registration [id number] 01/28/2014 16:36:00 Document Registration [id number] 07/09/2013 00:00:00 Document Registration [id number] 03/20/2012 12:50:00 Document Registration [id number] 10/24/2011 21:55:00 Document Registration [id number] 08/02/2011 22:56:00 Document Registration [id number] 05/14/2011 11:55:00 Document Registration [id number] 05/12/2011 07:27:00 Document Registration [id number] 01/15/2011 14:29:00 Document Registration [id number] 10/28/2014 23:38:41 ACT Document Registration [id number] 02/11/2016 08:56:01 02/11/2016 23:59:59 CLS Outpatient MANASA ALVAREZ, ALTAF [id number] 11/10/2015 14:19:11 Document Registration [id number] 07/11/2017 11:48:54 07/11/2017 11:48:54 DIS Outpatient [id number] 05/21/2014 13:59:00 05/21/2014 13:59:00 DIS Outpatient Shaikh ANTONIO, [facility] W.RAD [id number] 01/22/2014 15:19:00 01/22/2014 20:43:00 [facility] [id number] 05/30/2013 07:52:00 05/30/2013 15:15:00 DIS Outpatient Laila ALVAREZ, [facility] W.OPRA [id number] 06/03/2017 16:44:00 06/07/2017 18:13:00 DIS Inpatient Tawny Varela [facility] on [facility] F5SE Diarrhea, Hypotension [id number] 08/12/2015 11:37:00 08/12/2015 23:59:00 DIS Outpatient Goel Maged [facility] Short[facility] [id number] 06/08/2017 05:20:21 Document Registration [id number] 06/07/2017 05:20:29 Document Registration [id number] 06/06/2017 05:16:44 Document Registration [id number] 06/05/2017 05:16:46 Document Registration [id number] 06/04/2017 05:18:37 Document Registration
[2017-09-13 17:19] LABS: BASOPHILS % (AUTO) 0 % (0-10); EOSINOPHILS # (AUTO) 0.1 10^3/uL (0.0-0.3); EOSINOPHILS % (AUTO) 1 % (0-10); HEMATOCRIT 33 % (35-52); HEMOGLOBIN 10.5 G/DL (11.5-16.0); LYMPHOCYTES # (AUTO) 0.9 X 10^3 (1.0-4.0); LYMPHOCYTES % (AUTO) 10 % (12-44); MEAN CORPUSCULAR HEMOGLOBIN 32 PG (25-34); MEAN CORPUSCULAR HGB CONC 32 G/DL (32-36); MEAN CORPUSCULAR VOLUME 100 FL (80-99); MEAN PLATELET VOLUME 10.2 FL (7.4-10.4); MONOCYTES # (AUTO) 0.8 X 10^3 (0.0-1.0); MONOCYTES % (AUTO) 9 % (0-12); NEUTROPHILS # (AUTO) 7.2 X 10^3 (1.8-7.8); NEUTROPHILS % (AUTO) 80 % (42-75); PLATELET COUNT 246 10^3/uL (130-400); RED BLOOD COUNT 3.32 10^6/uL (4.35-5.85); RED CELL DISTRIBUTION WIDTH 13.6 % (10.0-14.5); WHITE BLOOD COUNT 9.1 10^3/uL (4.3-11.0)
[2017-09-13 17:37] LABS: ALBUMIN 3.4 GM/DL (3.2-4.5); BILIRUBIN,TOTAL 0.6 MG/DL (0.1-1.0); CALCIUM 9.7 MG/DL (8.5-10.1); CREATININE SERUM 9.91 MG/DL (0.60-1.30); POTASSIUM 3.7 MMOL/L (3.6-5.0); TOTAL PROTEIN 6.7 GM/DL (6.4-8.2)
--- NOTE | 2017-09-13 17:37 | ED General ---
General Chief Complaint: Cardiac/General Problems Stated Complaint: HIGH BP;VISION PROBLEMS Nursing Triage Note: pt brought to ed by family. family is concerned pt has had high bp today and has c/o seeing flashing lights and squiggly lines. Nursing Sepsis Screen: No Definite Risk Source of Information: Patient Exam Limitations: No Limitations History of Present Illness Date Seen by Provider: Sep 13, 2017 Time Seen by Provider: 16:45 Initial Comments Here with report of high blood pressure today and seeing flashing lights. Vision seems to be on the right eye but may be actually the right side. She does have peritoneal dialysis. She was seen here yesterday after fall and found to have rib fractures. Also had findings of subacute stroke noted. Overall she is doing well today the family was just concerned about the lites and her blood pressure. Blood pressure on arrival actually pretty good for her in the 150s and 160s systolic. She is known to have labile blood pressure. Denies chest pain, breathing problems, nausea, vomiting, diarrhea or difficulty swallowing. Timing/Duration: 4-6 Hours Severity: Moderate Associated Systoms: No Chest Pain, No Diaphoresis, No Fever/Chills, No Nausea/ Vomiting, No Shortness of Air, No Weakness Allergies and Home Medications Allergies Coded Allergies: No Known Drug Allergies (Verified , 03/08/15) Home Medications Allopurinol 100 Mg Tab, 100 MG PO DAILY, (Reported) Carvedilol 25 Mg Tablet, 12.5 MG PO BID, (Reported) take 1/2 of 25mg tab Hydrocodone/Acetaminophen 1 Each Tablet, 1 EACH PO Q4H PRN for PAIN-MODERATE TO SEVERE Prescribed by: BERHANE CARRILLO on 09/12/172036 Omeprazole 20 Mg Tablet.dr, 20 MG PO DAILY, (Reported) Venlafaxine Hcl 150 Mg Cap.sr.24h, 150 MG PO DAILY, (Reported) Patient Home Medication List Home Medication List Reviewed: Yes Review of Systems Constitutional: see HPI; No chills, No fever EENTM: other; No ear pain (vision changes) Respiratory: no symptoms reported Cardiovascular: see HPI; No palpitations, No syncope Gastrointestinal: No abdominal pain, No nausea, No vomiting Genitourinary: no symptoms reported Musculoskeletal: no symptoms reported All Other Systems Reviewed Negative Unless Noted: Yes Past Wbogwwa-Oplrum-Hafhse Hx Past Med/Social Hx: Reviewed Nursing Past Med/Soc Hx Patient Social History Alcohol Use: Denies Use 2nd Hand Smoke Exposure: No Recent Foreign Travel: No Contact w/Someone Who Travel: No Recent Infectious Disease Expo: No Recent Hopitalizations: Yes Immunizations Up To Date Tetanus Booster (TDap): Unknown Date of Pneumonia Vaccine: Dec 16, 2014 Date of Influenza Vaccine: Jan 01, 2015 Seasonal Allergies Seasonal Allergies: No Past Medical History Surgeries: Yes (APPENDECTOMY, GALL BLADDER, HYSTERECTOMY, HERNIA REMOVAL) Appendectomy, CABG, Gallbladder, Hysterectomy Respiratory: Yes Pneumonia, Sleep Apnea Currently Using CPAP: Yes Cardiac: Yes (CABG IN 2007) Coronary Artery Disease Neurological: No Reproductive Disorders: No Female Reproductive Disorders: Denies 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 Sexually Transmitted Disease: No HIV/AIDS: No Genitourinary: Yes Renal Failure, Dialysis Gastrointestinal: Yes Gastroesophageal Reflux, Diverticulosis, Ulcer, Gall Bladder Disease Musculoskeletal: Yes Arthritis Endocrine: Yes Diabetes, Non-Insulin dep HEENT: Yes Cataract Loss of Vision: Denies Hearing Impairment: Hard of Hearing Cancer: No Psychosocial: Yes Anxiety, Depression Integumentary: No Blood Disorders: Yes (ANEMIA--PROCRIT SHOTS EVERY 2 WEEKS, NONE X 6 WEEKS DUE TO ADEQUATE LEVELS) Adverse Reaction/Blood Tranf: Yes Family Medical History Reviewed Nursing Family Hx Cancer of colon 09 BROTHER Congestive heart failure 03 FATHER ( OF CHF) Family history: Diabetes mellitus 03 MOTHER (HAD DM AND WENT INTO A COMA) Physical Exam Vital Signs Vital Signs - First Documented 09/13/17 16:19 Temp 97.5 Pulse 70 Resp 12 B/P (MAP) 164/83 (110) O2 Delivery Room Air Capillary Refill : Less Than 3 Seconds Height, Weight, BMI Height: 5'5.00" Weight: 180lbs. 8.0oz. [id number]; 24.9 BMI Method:Estimated General Appearance: No Apparent Distress, WD/WN HEENT: PERRL/EOMI, Pharynx Normal Neck: Non Tender, Supple Respiratory: Lungs Clear, Normal Breath Sounds Cardiovascular: Regular Rate, Rhythm, No Murmur Gastrointestinal: Non Tender, Soft Back: Normal Inspection, No CVA Tenderness, No Vertebral Tenderness Extremity: Normal Range of Motion, Non Tender Neurologic/Psychiatric: Alert, Oriented x3 Skin: Normal Color, Warm/Dry Progress/Results/Core Measures Suspected Sepsis Recent Fever Within 48 Hours: No Infection Criteria Present: None New/Unexplained Altered Menta: No Sepsis Screen: No Definite Risk SIRS Temperature:97.5 Pulse: 70 Respiratory Rate: 12 Laboratory Tests 09/13/17 17:12: White Blood Count 9.1 Blood Pressure 164 /83 Mean: 110 Laboratory Tests 09/13/17 17:12: Creatinine 9.91H, Platelet Count 246, Total Bilirubin 0.6 Results/Orders Lab Results Laboratory Tests Test 09/13/17 17:12 Range/Units White Blood Count 9.1 4.3-11.0 10^3/uL Red Blood Count 3.32 L 4.35-5.85 10^6/uL Hemoglobin 10.5 L 11.5-16.0 G/DL Hematocrit 33 L 35-52 % Mean Corpuscular Volume 100 H 80-99 FL Mean Corpuscular Hemoglobin 32 25-34 PG Mean Corpuscular Hemoglobin Concent 32 32-36 G/DL Red Cell Distribution Width 13.6 10.0-14.5 % Platelet Count 246 130-400 10^3/uL Mean Platelet Volume 10.2 7.4-10.4 FL Neutrophils (%) (Auto) 80 H 42-75 % Lymphocytes (%) (Auto) 10 L 12-44 % Monocytes (%) (Auto) 9 0-12 % Eosinophils (%) (Auto) 1 0-10 % Basophils (%) (Auto) 0 0-10 % Neutrophils # (Auto) 7.2 1.8-7.8 X 10^3 Lymphocytes # (Auto) 0.9 L 1.0-4.0 X 10^3 Monocytes # (Auto) 0.8 0.0-1.0 X 10^3 Eosinophils # (Auto) 0.1 0.0-0.3 10^3/uL Basophils # (Auto) 0.0 0.0-0.1 10^3/uL Sodium Level 142 135-145 MMOL/L Potassium Level 3.7 3.6-5.0 MMOL/L Chloride Level 98 98-107 MMOL/L Carbon Dioxide Level 29 21-32 MMOL/L Anion Gap 15 H 5-14 MMOL/L Blood Urea Nitrogen 44 H 7-18 MG/DL Creatinine 9.91 H 0.60-1.30 MG/DL Estimat Glomerular Filtration Rate 4 BUN/Creatinine Ratio 4 Glucose Level 110 H 70-105 MG/DL Calcium Level 9.7 8.5-10.1 MG/DL Total Bilirubin 0.6 0.1-1.0 MG/DL Aspartate Amino Transf (AST/SGOT) 56 H 5-34 U/L Alanine Aminotransferase (ALT/SGPT) 95 H 0-55 U/L Alkaline Phosphatase 118 40-136 U/L Total Protein 6.7 6.4-8.2 GM/DL Albumin 3.4 3.2-4.5 GM/DL My Orders Orders - SARA OAKLEY MD Cbc With Automated Diff (09/13/17 17:04) Comprehensive Metabolic Panel (09/13/17 17:04) Vital Signs/I&O 09/13/17 16:19 Temp 97.5 Pulse 70 Resp 12 B/P (MAP) 164/83 (110) O2 Delivery Room Air Capillary Refill : Less Than 3 Seconds Blood Pressure Mean: 110 Progress Note : Progress Note Seen and evaluated. I did have a long discussion with the patient and family about her continued care needs. We had a open and honest discussion about end- of-life care and hospice. I'm not sure she is ready for that at this point but she is open further conversation. She is on long-term peritoneal dialysis and has stated that she does not want hemodialysis. She also states that she really doesn't want advanced surgical procedures. The daughter and daughter-in- law were with the patient during the conversation and all are in agreement that they will have further discussion with Dr. Martel tomorrow. We will check basic labs today compared to previous. I do note that previous labs are showing that she has having increasing levels of creatinine indicating the peritoneal dialysis is probably losing some effectiveness. She has appointment with her process worker on . I will send a copy of the chart to Dr. Martel completion. There is no focal deficits noted on exam and she has lateral vision bilateral and visual jett appear to be all equal. Strength is equal bilateral although she is somewhat weak on all 4 extremities. Labs pending. 1757: Labs reviewed. Discussed with patient. Discharged home with return precautions. Patient and family verbalize understanding instructions and agreement with plan. Departure Impression Primary Impression: Labile blood pressure Additional Impression: Vision changes Disposition: 01 HOME, SELF-CARE Condition: Stable Departure-Patient Inst. Decision time for Depature: 18:02 Referrals: JAGDISH MARTEL DO (PCP/Family) Primary Care Physician Patient Instructions: High Blood Pressure (DC) Add. Discharge Instructions: All discharge instructions reviewed with patient and/or family. Voiced understanding. Follow-up with Dr. Martel tomorrow and your process worker on as scheduled. Return for worse pain, fever, vomiting, weakness, breathing problems or other concerns as needed. Continue home meds at home peritoneal dialysis as previously prescribed. You should consider follow-up with an eye doctor as well given your recent vision changes. Copy Copies To 1: JAGDISH MARTEL TIMOTHY D MD Sep 13, 2017 17:37
[2017-09-13 18:10] VITALS: BP 170/84
== END 2017-09-13 18:10 | disposition home or self-care (01) ==
LOC: EDUNIT# 15:58 → ER 16:00
DX: R03.0 Elevated blood-pressure reading, without diagnosis of hypertension (principal); H57.8 Other specified disorders of eye and adnexa; I25.10 Atherosclerotic heart disease of native coronary artery without angina pectoris; K21.9 Gastro-esophageal reflux disease without esophagitis; E11.9 Type 2 diabetes mellitus without complications; F41.9 Anxiety disorder, unspecified; F32.9 Major depressive disorder, single episode, unspecified; Z87.19 Personal history of other diseases of the digestive system; Z99.2 Dependence on renal dialysis; Z90.49 Acquired absence of other specified parts of digestive tract; Z95.1 Presence of aortocoronary bypass graft; Z90.710 Acquired absence of both cervix and uterus
CPT/HCPCS: 36415; 80053; 85025; 99283

== ENCOUNTER → 2017-10-17 | Outpatient (CLI) | payer MEDICARE ==
--- NOTE | 2017-10-17 11:58 | Diagnostic Imaging Report ---
INDICATION: Dysphagia. Procedure was performed in conjunction with speech pathology. Video fluoroscopy was performed during swallowing multiple consistencies. 2 minutes and 20 seconds of fluoroscopy was utilized. Patient ingested thin barium, nectar as well as applesauce and mechanical soft as well as cracker consistency. There was laryngeal penetration during swallowing of thin barium. No aspiration was observed. All other consistencies were unremarkable. There is some delay in initiation of the swallow. There is mild vallecular and piriform sinus noted. Normal epiglottic tilt is seen. Impression: Laryngeal penetration with thin liquid, but no aspiration. Mild residue, as described and early spillover. Dictated by: Dictated on workstation # [id number]
== END ==
LOC: RAD 10-14 10:44
PROVIDERS: ATTEND Internal Medicine
DX: I69.391 Dysphagia following cerebral infarction (principal)
CPT/HCPCS: 74230